=== PATIENT | male | born 1935 | race Caucasian/White ===

== ENCOUNTER 2016-12-04 07:40 | Emergency (ER) | payer OTHER ==
[~2016-12-04] VITALS: Ht 180.3 cm; Wt 86.0 kg
[~2016-12-04 07:40] MED LIST: KETO2CRE14 TOP; PRLSR20 PO; RANITAB6 PO; SIMV20TA2 PO; SOTA120T PO; WARF5TAB90 PO
[2016-12-04 08:02] LABS: BASO % 0.7 %; BASO ABS # 0.06 K/uL (0-0.2); COMPLETE YES; EOS % 10.2 %; HEMATOCRIT 41.4 % (42-52); IG% 0.1 %; LYMPH % 45.3 %; LYMPH ABS # 3.79 K/uL (1.2-3.4); MEAN CORPUSCULAR HEMOGLOBIN 32.8 pg (25-34); MEAN CORPUSCULAR HGB CONC 33.8 g/dl (32-36); MEAN PLATELET VOLUME 11.3 fL (7.4-10.4); MONO % 8.3 %; NEUT % 35.4 %; PLATELET COUNT 159 K/uL (130-400); RED BLOOD COUNT 4.27 M/uL (4.7-6.1); WHITE BLOOD COUNT 8.36 K/uL (4.8-10.8)
[2016-12-04 08:11] LABS: INR 2.2 (0.9-1.1); PARTIAL THROMBOPLASTIN RATIO 1.3; PROTHROMBIN TIME (PATIENT) 24.1 SECONDS (9.0-12.0)
[2016-12-04] MEDS ORDERED: SODIUM CHLORIDE 0.9% 1000ML 1,000 ML IV STA (08:18)
[2016-12-04] MEDS ORDERED: METOPROLOL TARTRATE 1 MG/ML VIAL IV STA ×3 (08:18→13:04)
[2016-12-04 08:19] LABS: ALT/SGPT 19 U/L (12-78); BLOOD UREA NITROGEN 19 mg/dl (7-18); BUN/CREATININE RATIO 18.8 (10-20); CALCIUM 9.1 mg/dl (8.5-10.1); CARBON DIOXIDE 29 mmol/L (21-32); CHLORIDE 105 mmol/L (98-107); GLUCOSE 106 mg/dl (70-99); MAGNESIUM 2.3 mg/dl (1.8-2.4); POTASSIUM 4.2 mmol/L (3.5-5.1); SODIUM 140 mmol/L (136-145)
[2016-12-04 08:30] LABS: ALKALINE PHOSPHATASE 50 U/L (45-117); AST/SGOT 24 U/L (15-37)
[2016-12-04] MEDS ORDERED: SOTA160T PO (09:15)
[2016-12-04] MEDS ORDERED: OMEP20CA9 PO (09:15)
[2016-12-04] MEDS ORDERED: NZRCR TOP (09:22)
[2016-12-04] MEDS ORDERED: SODIUM CHLORIDE 0.9% 500ML 500 ML IV STA (11:42)
[2016-12-04 11:51] LABS: URINE APPEARANCE CLEAR (CLEAR); URINE BILIRUBIN NEG (NEG); URINE COLOR YELLOW; URINE NITRITE NEG (NEG); URINE PH 7.5 (4.5-7.5); URINE SPECIFIC GRAVITY 1.011 (1.000-1.030); UROBILINOGEN NEG (NEG)
[2016-12-04 11:55] LABS: MANUAL MICROSCOPIC REQUIRED? NO; REVIEW REQ? NO
[2016-12-04 13:44] VITALS: O2SAT 98
[2016-12-04 15:06] VITALS: BP 94/69; PULSE 123; TEMP 36.5; O2SAT 98; Ht 180.3 cm; Wt 86.0 kg
[2016-12-04] MEDS ORDERED: LIDOCAINE 2% 20 MG/ML 5ML SYR ONE (15:15)
[2016-12-04] MEDS ORDERED: PROPOFOL IV EMULSION 10 MG/ML 20 ML VIAL IV ONE ×2 (15:15→15:19)
[2016-12-04] MEDS ORDERED: LIDOCAINE HCL 2% 2 ML VIAL (20MG/ML) ONE (15:19)
[2016-12-04 15:45] VITALS: BP 87/53; PULSE 63; O2SAT 96
[2016-12-04 15:47] VITALS: BP 92/51; PULSE 66; O2SAT 95
[2016-12-04 15:50] VITALS: BP 89/58; PULSE 56; O2SAT 95
--- NOTE | 2016-12-04 16:02 | Discharge Instructions ---
Discharge Instructions Procedure Procedure Date: Dec 04, 2016. Reason for Visit: Generalized Weakness. Discharge Discharge Date: Dec 04, 2016. Discharge Diagnosis: Atrial fibrillation Last Recorded Wt (Kilograms): 86 Anesthesia Post Anesthesia Instructions: If you have had General Anesthesia or IV Sedation: * Do not drive today. * Resume driving when surgeon permits. * Do not make important decisions or sign legal documents today. * Call surgeon for: 1. Temperature elevations greater than 101 degrees F. 2. Uncontrollable pain. 3. Excessive bleeding. 4. Persistent nausea and vomiting. 5. Medication intolerance (nausea, vomiting or rash). * For nausea and vomiting use only clear liquids such as: tea, soda, bouillon until nausea subsides, then gradually increase diet as tolerated. * If you have any concerns or questions, call your surgeon's office. If physician is unavailable and it is an emergency, call 911 or go to the nearest emergency room. Instructions Activity Recommendations: driving or machine use limit Return to School/Work: with no limitations Recommended Home Diet: low sodium Allergies: Coded Allergies: Aspirin (Unverified Adverse Reaction, Mild, STOMACH UPSET, 12/04/16) Provider Instructions ACTIVITY RECOMMENDATIONS: * May resume driving tomorrow. SPECIAL CARE: * May apply burn ointment for skin irritation. * Please contact physician for any lightheadedness, dizziness or palpitations. Follow Up Follow-up with: Riley 1 sudha Chakraborty Recommendations: Call your doctor if: * Temperature above 101 degrees * Pain not relieved by pain medicine ordered * There is increased drainage or redness from any incision * You have any unanswered questions or concerns. Your Doctors Instructions noted above were prepared by provider Pasquale Dye. Patient Signature Section: Patient Instructions Signature Page Chaz Jenkins Patient (or Guardian) Signature/Date: I have read and understand the instructions given to me by my caregivers. Caregiver/RN/Doctor Signature/Date: The above-named patient and/or guardian has received patient instructions on this date. + Original Patient Signature Page (only) stays with chart. Please make copy for patient.
--- NOTE | 2016-12-04 16:06 | EMERGENCY ROOM VISIT NOTE ---
History Report prepared by Mello: Catherine Coe Under the Supervision of: Dr. Matteo Barker M.D. First contact with patient: 07:42 Stated Complaint: GENERALIZED WEAKNESS History of Present Illness The patient is an 81 year old male who presents to the Emergency Room with complaints of a persistent irregular heartbeat that began last evening. The patient states that he has a 15 year history of atrial fibrillation, noting that he has been cardioverted in the past. He states that he is currently on Warfarin and Sotalol. The patient states that he has been feeling fatigued since this episode began. The patient states that he has not had an episode of atrial fibrillation in several years. He states that he follows with Dr. Lin, Cardiology for his atrial fibrillation. The patient denies any alcohol or caffeine consumption. Pt denies LOC, headache, fevers, chills, diaphoresis, visual changes, neck pain, chest pain, breathing difficulties, nausea, vomiting , abdominal pain, back pain, melena, hematochezia, urinary symptoms, numbness, weakness, lymphadenopathy, rash, or other complaints. Source of History: patient Onset: last evening Position: other (global) Quality: other (irregular heartbeat) Timing: other (persistent) Associated Symptoms: + fatigue Review of Systems See HPI for pertinent positives and negatives. A total of ten systems were reviewed and were otherwise negative. Past Medical & Surgical Medical Problems: (1) Atrial fibrillation (2) Cholecystectomy (3) Gastroesophageal reflux disease Family History Hypertension Kidney disease Social History Smoking Status: Former Smoker Alcohol Use: occasionally Drug Use: none Marital Status: Housing Status: lives with family Occupation Status: retired Current/Historical Medications Scheduled Ketoconazole (Ketoconazole), 1 APPLN TOP DAILY Omeprazole (Prilosec), 20 MG PO DAILY Simvastatin (Zocor), 20 MG PO HS Sotalol Hcl (Sotalol Hcl), 1 TAB PO BID Warfarin Sodium (Coumadin), 5 MG PO 5XWK Warfarin Sodium (Coumadin), 2.5 MG PO MWF Allergies Coded Allergies: Aspirin (Unverified Adverse Reaction, Mild, STOMACH UPSET, 12/04/16) Physical Exam Vital Signs Date Time Temp Pulse Resp B/P Pulse Ox O2 Delivery O2 Flow Rate FiO2 12/04/16 15:06 36.5 123 16 94/69 98 Room Air 12/04/16 15:06 36.5 123 16 94/69 96 Room Air 12/04/16 13:44 124 16 94/69 98 Room Air 12/04/16 13:13 126 132/95 12/04/16 13:03 133 12/04/16 12:54 124 15 132/95 98 Room Air 12/04/16 11:14 117 12/04/16 10:34 127 18 110/69 12/04/16 10:23 131 18 78/54 12/04/16 09:43 145 20 120/76 12/04/16 08:51 123 18 105/84 97 12/04/16 08:29 137 105/80 12/04/16 08:00 99 Room Air 12/04/16 07:55 145 12/04/16 07:52 36.5 136 18 118/91 100 Room Air Physical Exam GENERAL: Awake, alert, well-appearing, in no distress HENT: Normocephalic, atraumatic. Oropharynx unremarkable. EYES: Normal conjunctiva. Sclera non-icteric. NECK: Supple. No nuchal rigidity. FROM. No JVD. RESPIRATORY: Clear to auscultation. CARDIAC: Tachycardic rate, irregular rhythm. Extremities warm and well perfused. Pulses equal. ABDOMEN: Soft, non-distended. No tenderness to palpation. No rebound or guarding. No masses. RECTAL: Deferred. MUSCULOSKELETAL: Chest examination reveals no tenderness. The back is symmetrical on inspection without obvious abnormality. There is no CVA tenderness to palpation. No joint edema. LOWER EXTREMITIES: Calves are equal size bilaterally and non-tender. No edema. No discoloration. NEURO: Normal sensorium. No sensory or motor deficits noted. SKIN: No rash or jaundice noted. Medical Decision & Procedures Laboratory Results 12/04/16 07:30 Red Blood Count 4.27, Mean Corpuscular Volume 97.0, Mean Corpuscular Hemoglobin 32.8, Mean Corpuscular Hemoglobin Concent 33.8, Mean Platelet Volume 11.3, Neutrophils (%) (Auto) 35.4, Lymphocytes (%) (Auto) 45.3, Monocytes (%) (Auto) 8.3, Eosinophils (%) (Auto) 10.2, Basophils (%) (Auto) 0.7, Neutrophils # (Auto ) 2.96, Lymphocytes # (Auto) 3.79, Monocytes # (Auto) 0.69, Eosinophils # (Auto ) 0.85, Basophils # (Auto) 0.06 12/04/16 07:30 Test 12/04/16 07:30 12/04/16 11:10 White Blood Count 8.36 K/uL (4.8-10.8) Red Blood Count 4.27 M/uL (4.7-6.1) Hemoglobin 14.0 g/dL (14.0-18.0) Hematocrit 41.4 % (42-52) Mean Corpuscular Volume 97.0 fL (80-100) Mean Corpuscular Hemoglobin 32.8 pg (25-34) Mean Corpuscular Hemoglobin Concent 33.8 g/dl (32-36) Platelet Count 159 K/uL (130-400) Mean Platelet Volume 11.3 fL (7.4-10.4) Neutrophils (%) (Auto) 35.4 % Lymphocytes (%) (Auto) 45.3 % Monocytes (%) (Auto) 8.3 % Eosinophils (%) (Auto) 10.2 % Basophils (%) (Auto) 0.7 % Neutrophils # (Auto) 2.96 K/uL (1.4-6.5) Lymphocytes # (Auto) 3.79 K/uL (1.2-3.4) Monocytes # (Auto) 0.69 K/uL (0.11-0.59) Eosinophils # (Auto) 0.85 K/uL (0-0.5) Basophils # (Auto) 0.06 K/uL (0-0.2) RDW Standard Deviation 48.7 fL (36.4-46.3) RDW Coefficient of Variation 13.7 % (11.5-14.5) Immature Granulocyte % (Auto) 0.1 % Immature Granulocyte # (Auto) 0.01 K/uL (0.00-0.02) Prothrombin Time 24.1 SECONDS (9.0-12.0) Prothromb Time International Ratio 2.2 (0.9-1.1) Activated Partial Thromboplast Time 34.6 SECONDS (21.0-31.0) Partial Thromboplastin Ratio 1.3 Anion Gap 6.0 mmol/L (3-11) Est Creatinine Clear Calc Drug Dose 63.6 ml/min Estimated GFR () 81.4 Estimated GFR (Non- 70.3 BUN/Creatinine Ratio 18.8 (10-20) Calcium Level 9.1 mg/dl (8.5-10.1) Magnesium Level 2.3 mg/dl (1.8-2.4) Total Bilirubin 0.5 mg/dl (0.2-1) Direct Bilirubin < 0.1 mg/dl (0-0.2) Aspartate Amino Transf (AST/SGOT) 24 U/L (15-37) Alanine Aminotransferase (ALT/SGPT) 19 U/L (12-78) Alkaline Phosphatase 50 U/L (45-117) Total Protein 7.0 gm/dl (6.4-8.2) Albumin 3.8 gm/dl (3.4-5.0) Lipase 226 U/L (73-393) Thyroid Stimulating Hormone (TSH) 6.320 uIu/ml (0.300-4.500) Urine Color YELLOW Urine Appearance CLEAR (CLEAR) Urine pH 7.5 (4.5-7.5) Urine Specific [place] 1.011 (1.000-1.030) Urine Protein NEG (NEG) Urine Glucose (UA) NEG (NEG) Urine Ketones NEG (NEG) Urine Occult Blood NEG (NEG) Urine Nitrite NEG (NEG) Urine Bilirubin NEG (NEG) Urine Urobilinogen NEG (NEG) Urine Leukocyte Esterase NEG (NEG) Laboratory results reviewed by me Medications Administered Medications (Trade) Dose Ordered Sig/Gabby Route Start Time Stop Time Status Last Admin Dose Admin Metoprolol Tartrate 5 mg 5 mg NOW STAT IV 12/04/16 08:18 12/04/16 08:20 DC 12/04/16 08:29 5 MG Sodium Chloride 1,000 ml @ 125 mls/hr Q8H STAT IV 12/04/16 08:18 12/04/16 16:17 12/04/16 08:29 125 MLS/HR Sodium Chloride (Nss 500ml) 500 ml @ 999 mls/hr Q31M STAT IV 12/04/16 11:42 12/04/16 12:12 DC 12/04/16 11:42 999 MLS/HR Metoprolol Tartrate (Lopressor Iv) 2.5 mg NOW STAT IV 12/04/16 13:04 12/04/16 13:06 DC 12/04/16 13:13 2.5 MG ECG Indication: other (irregular heartbeat) Rate (beats per minute): 138 Rhythm: atrial fibrillation (with RVR) Findings: no acute ischemic change, no ectopy ED Course 804: The patient was evaluated in room B6. A complete history and physical exam was performed. 0818: Ordered Sodium Chloride 1000 ml @ 125 mls/hr IV, Lopressor IV 5 mg IV. 09: I discussed the patients case with Dr. Dye, Cardiology. He is going to look into cardioverting the patient. 0940: I reevaluated the patient and it was brought to my attention that the patient ate a cracker with his Sotalol. 1006: I rediscussed the patient's case with Dr. Dye, Cardiology. He will take the patient to be cardioverted later this afternoon. 1040: I reevaluated the patient and he had an episode of hypotension. The patient is awaiting cardiology for cardioversion. 1142: Ordered Sodium Chloride 500 ml @ 999 mls/hr IV. 1304: I reevaluated the patient and he is resting comfortably. Ordered Lopressor IV 2.5 mg IV. 1439: I reevaluated the patient and he is preparing to go over for cardioversion. Medical Decision Triage Nursing notes reviewed. The patient's presentation and history were concerning for rapid atrial fibrillation. Etiologies such as ectopy, cardiac dysrhythmia, electrolyte abnormality, thyroid dysfunction, pulmonary embolism, infection, gastrointestinal, as well as others were entertained. The patient was evaluated. He had rapid atrial fibrillation. He was asymptomatic otherwise. The patient was started on normal saline and given 5 mg of IV Lopressor. Consultation was made with cardiology for cardioversion as the patient states he has had poor success in the past medications. Unfortunately the patient ate a cracker with taking his morning sotalol and this delayed his cardioversion until after 1500 hrs. The patient did require a small fluid bolus of 500 mL secondary to some borderline low blood pressure after Lopressor. He did very well with this. The patient was given a second 2.5 mg dose was present for rate control. The patient was taken to the cardiopulmonary suite and was cardioverted. He will be followed up in the office. He will continue his current medications. The chart was completed utilizing [employer] voice recognition software. Grammatical errors, random word insertions, pronoun errors, and incomplete sentences are an occasional consequence of this system due to software limitations, ambient noise, and hardware issues. Any formal questions or concerns about the content, text, or information contained within the body of this dictation should be directly addressed to the physician for clarification. Consults Time Called: 916 Consulting Physician: Dr. Dye, Cardiology Returned Call: [phone] I discussed the patients case with Keyana Braswell. He is going to look into cardioverting the patient. Additional Consults: Time Called: 100 Consulted Physician: Dr. Dye Cardiology Returned Call: 100 Additional Comments: I rediscussed the patient's case with Keyana Braswell. He will take the patient to be cardioverted later this afternoon. Impression Primary Impression: Atrial fibrillation with rapid ventricular response Critical Care I have personally spent greater than 30 minutes of critical care time in the direct management of this patient. This includes bedside care, interpretation of diagnostic studies, and testing, discussion with consultants, patient, and other required patient management activities. This 30 minutes is in excess of all separately billable procedures. Scribe Attestation The scribe's documentation has been prepared under my direction and personally reviewed by me in its entirety. I confirm that the note above accurately reflects all work, treatment, procedures, and medical decision making performed by me. Departure Information Dispostion Home / Self-Care (discharged by cardiology) Referrals Gabriele Brown M.D. (PCP)
--- NOTE | 2016-12-04 16:29 | CARDIOVERSION ---
DATE OF OPERATION: 12/04/2016 PROCEDURE PERFORMED: Electrical cardioversion. STAFF [employer] SOFTWARE DEVELOPMENT ENGINEER: El Dye MD INDICATION: Mr. Chaz Jenkins is an 81-year-old gentleman with a longstanding history of paroxysmal atrial fibrillation, who presented with symptoms of atrial fibrillation today. He has been appropriately anticoagulated and requested cardioversion for symptom relief. PROCEDURE IN DETAIL: The patient was informed of the risks, benefits and alternatives to the intended procedure. He understood such and wished to proceed. He was taken to the cardiac catheterization suite in a fasting state and general anesthetic was administered by the anesthesiology service. Once appropriately anesthetized, patient underwent direct current cardioversion with 200 joules delivered in a biphasic fashion. This returned patient to a normal sinus rhythm. Rhythm was confirmed with an EKG. The patient was neurologically intact. Subsequent to the procedure, there were no immediate complications. IMPRESSION: Successful cardioversion from atrial fibrillation and normal sinus rhythm. I attest to the content of the Intraoperative Record and any orders documented therein. Any exceptio ns are noted below.
--- NOTE | 2016-12-04 16:29 | Anesthesiology Progress Note ---
Anesthesia Post Op Note Date & Time Dec 04, 2016 at 16:30 Vital Signs Pain Intensity: 0 Vital Signs Past 12 Hours Date Time Temp Pulse Resp B/P Pulse Ox O2 Delivery O2 Flow Rate FiO2 12/04/16 16:00 53 16 100/50 96 Room Air 12/04/16 15:55 53 16 98/49 96 Room Air 12/04/16 15:50 56 16 89/48 96 Room Air 12/04/16 15:50 56 16 89/58 95 Nasal Cannula 4 12/04/16 15:47 66 16 92/51 95 Nasal Cannula 4 12/04/16 15:45 63 16 87/53 96 Nasal Cannula 4 12/04/16 15:06 36.5 123 16 94/69 98 Room Air 12/04/16 15:06 36.5 123 16 94/69 96 Room Air 12/04/16 13:44 124 16 94/69 98 Room Air 12/04/16 13:13 126 132/95 12/04/16 13:03 133 12/04/16 12:54 124 15 132/95 98 Room Air 12/04/16 11:14 117 12/04/16 10:34 127 18 110/69 12/04/16 10:23 131 18 78/54 12/04/16 09:43 145 20 120/76 12/04/16 08:51 123 18 105/84 97 12/04/16 08:29 137 105/80 12/04/16 08:00 99 Room Air 12/04/16 07:55 145 12/04/16 07:52 36.5 136 18 118/91 100 Room Air Notes Mental Status: alert / awake / arousable, participated in evaluation Pt Amnestic to Procedure: Yes Nausea / Vomiting: adequately controlled Pain: adequately controlled Airway Patency, RR, SpO2: stable & adequate BP & HR: stable & adequate Hydration State: stable & adequate Anesthetic Complications: no major complications apparent
[2016-12-04 16:30] VITALS: BP 156/64; PULSE 63; O2SAT 96
--- NOTE | 2017-04-21 18:35 | Procedure Note ---
Procedure Note Date of Service December 04, 2016. Procedure Note Procedure performed: Electrocardioversion Staff lower school music teacher:Vick Dye Indication: Symptomatic atrial fibrillation Procedure in detail Patient was informed of the risks benefits alternatives to the intended procedure. He was brought to the cardiac catheterization holding area. A general anesthetic was administered by the Anesthesiology Service. Once appropriately anesthetized the patient underwent cardioversion using a biphasic waveform. This returned the patient to sinus rhythm. The patient was neurologically intact subsequent to the procedure. There were no immediate complications Impression: Successful cardioversion from atrial fibrillation to sinus rhythm
== END 2016-12-04 15:27 | disposition home or self-care (01) ==
LOC: EDBD 07:40 → C.EDB 07:41
DX: I48.91 Unspecified atrial fibrillation (principal); Z90.49 Acquired absence of other specified parts of digestive tract; K21.9 Gastro-esophageal reflux disease without esophagitis; Z87.891 Personal history of nicotine dependence; Z79.01 Long term (current) use of anticoagulants

== ENCOUNTER → 2017-06-16 | Outpatient (CLI) | payer OTHER ==
[~2017-06-16] MED LIST changes: -KETO2CRE14 TOP; +NZRCR TOP; +OMEP20CA9 PO; -PRLSR20 PO; -RANITAB6 PO; -SOTA120T PO; +SOTA160T PO
[2017-06-16 11:10] LABS: ALT/SGPT 17 U/L (12-78); AST/SGOT 19 U/L (15-37); BLOOD UREA NITROGEN 23 mg/dl (7-18); BUN/CREATININE RATIO 20.6 (10-20); CARBON DIOXIDE 29 mmol/L (21-32); CHLORIDE 108 mmol/L (98-107); GLUCOSE 91 mg/dl (70-99); POTASSIUM 4.2 mmol/L (3.5-5.1); SODIUM 141 mmol/L (136-145)
[2017-06-16 11:15] LABS: CALCIUM 9.3 mg/dl (8.5-10.1)
[2017-06-16 11:21] LABS: CHOLESTEROL 162 mg/dl (0-200); CHOLESTEROL/HDL RATIO 2.4; HDL CHOLESTEROL 67 mg/dl; LDL CHOLESTEROL CALCULATED 78 mg/dl; TRIGLYCERIDES 86 mg/dl (0-150); VERY LOW DENSITY LIPOPROT CALC 17 mg/dl
== END | disposition home or self-care (01) ==
LOC: C.LABBC 08:18
PROVIDERS: ATTEND Internal Medicine
DX: E03.9 Hypothyroidism, unspecified (principal); E78.5 Hyperlipidemia, unspecified

== ENCOUNTER → 2018-01-01 | Outpatient (CLI) | payer OTHER ==
[2018-01-01 11:16] LABS: HEMATOCRIT 39.2 % (42-52); HEMOGLOBIN 13.2 g/dL (14.0-18.0); MEAN CELL VOLUME 98.2 fL (80-100); MEAN CORPUSCULAR HEMOGLOBIN 33.1 pg (25-34); MEAN CORPUSCULAR HGB CONC 33.7 g/dl (32-36); MEAN PLATELET VOLUME 11.4 fL (7.4-10.4); PLATELET COUNT 143 K/uL (130-400); RED CELL DISTRIBUTION WIDTH CV 13.9 % (11.5-14.5); WHITE BLOOD COUNT 7.29 K/uL (4.8-10.8)
[2018-01-01 11:25] LABS: ALT/SGPT 21 U/L (12-78); AST/SGOT 20 U/L (15-37); BLOOD UREA NITROGEN 27 mg/dl (7-18); CALCIUM 8.9 mg/dl (8.5-10.1); CARBON DIOXIDE 30 mmol/L (21-32); CHOLESTEROL 160 mg/dl (0-200); CREATININE 1.01 mg/dl (0.60-1.40); GLUCOSE 95 mg/dl (70-99); POTASSIUM 4.2 mmol/L (3.5-5.1); SODIUM 139 mmol/L (136-145)
[2018-01-01 11:36] LABS: LDL CHOLESTEROL CALCULATED 87 mg/dl
== END | disposition home or self-care (01) ==
LOC: C.LABBC 08:13
PROVIDERS: ATTEND Internal Medicine
DX: E78.5 Hyperlipidemia, unspecified (principal); E03.9 Hypothyroidism, unspecified; I48.0 Paroxysmal atrial fibrillation

== ENCOUNTER 2024-12-31 00:12 | Inpatient (IN) ==
--- NOTE | 2024-12-31 00:26 | Emergency Department Note ---
History of Present Illness General Chief complaint: Fall Stated complaint: FALL, LAC TO FOREHEAD Time Seen by Provider: 12/31/24 00:13 History of Present Illness Maximum Pain Intensity: 4 This 89-year-old male on Coumadin for A-fib presents ER for syncope and fall. Patient states he was walking and then collapsed. He does not quite recall the events. He did press his help alert button that he wears. Patient has an abrasion to the left side of the face. He has chronic hip pain. Patient states he hit his head. He denies neck pain, chest pain, dyspnea, abdominal pain, numbness, tingling or any other medical complaints. Home Medications Medication Instructions Recorded Confirmed Type mecobalamin (vitamin B12) 1,000 1,000 mcg PO DAILY 09/08/22 12/31/24 History mcg chewable tablet sotalol 160 mg tablet 160 mg PO BID #180 tabs 08/18/24 12/31/24 Rx simvastatin 20 mg tablet 20 mg PO HS #90 tabs 11/15/24 12/31/24 Rx acetaminophen 500 mg tablet 1,000 mg PO Q8H PRN back pain 12/27/24 12/31/24 History (Tylenol Extra Strength) lidocaine 5 % topical patch 1 patch topical DAILY PRN 12/27/24 12/31/24 History (Lidoderm) PAIN-LOWER BACK warfarin 5 mg tablet See Rx Instructions PO UD 12/27/24 12/31/24 History Allergies Allergy/AdvReac Type Severity Reaction Status Date / Time aspirin AdvReac Intermediate UPSET Verified 12/31/24 01:04 STOMACH clopidogrel [From Plavix] AdvReac Intermediate Abdominal Verified 12/31/24 01:04 Pain Past Med/Surg History Problem List (Updated 12/31/24 @ 03:41 by Marina Suárez PA-C) Constipation Urinary retention Facial laceration (Acute) Head injury (Acute) Syncope (Acute) Hernia, hiatal (Acute) Back pain (Acute) Compression fracture of thoracic spine, non-traumatic (Acute) Anemia Idiopathic polyneuropathy Gait disorder Depression Hypothyroidism "BORDERLINE" PCP monitoring; patient "deferred meds" at this time; TSH 5.080H, Free T4 0.80 (WNL) per 05/28/19 labs BPH (benign prostatic hyperplasia) Inguinal hernia of left side without obstruction or gangrene 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 Paroxysmal atrial fibrillation (Chronic) Dyslipidemia (Chronic) Glaucoma (Acute) Chest pain Encounter for monitoring anti-arrhythmic therapy Vitamin B12 deficiency Oropharyngeal dysphagia Silent aspiration Medical History Hx of thrombosis of lower extremity Headache History of kidney stones SOB (shortness of breath) on exertion Paroxysmal atrial fibrillation GERD (gastroesophageal reflux disease) Dyslipidemia Surgical History History of tooth extraction History of inguinal hernia repair History of endoscopy History of cardioversion History of toe surgery History of colonoscopy History of cholecystectomy Family History Uncle Myocardial infarction Brother Myocardial infarction Mother Diabetes Father History of pneumonia Denies family history of Ovarian cancer Prostate cancer Breast cancer Colorectal cancer Social History Smoking Status: Former smoker Tobacco Type: Cigarettes Age Started Using Tobacco: 18; Age Quit Using Tobacco: 35; packs per day: 2; Second Hand Exposure: No; Do You Dip or Chew Tobacco: No; Tobacco Cessation Education Requested by Patient: No Hx Alcohol Use: No Hx Substance Use: No Preferred Language: Yi Communication Ability: Effective Visual Impairment: No Limitations Hearing Ability: Normal Cost Manager Required: No Beliefs That Will Affect Care: None marital status: / Current Living Situation: Alone Current Living Situation Comment: Home current occupational status: retired 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 Other Information That Helps Us Care for You: No Feels Safe at Home: Yes Safety Concerns: Feels Safe At This Time Childhood Exposure to Second-Hand Smoke: Yes Dental Care, Regularly: Yes Physical Activity Frequency: Daily Physical Activity Frequency Comment: walking Seatbelt Use: always Sunscreen Use: No Assistive Devices: None Review of Systems A total of 10 systems reviewed and were otherwise negative Physical Exam Vital Signs Vital Signs - 24 hr 12/31/24 00:16 12/31/24 00:24 12/31/24 00:44 Temperature 37 C Temperature Source Oral Pulse Rate 68 70 Pulse Rate [Apical] 84 Pulse Rhythm [Apical] Pulse Strength [Apical] Respiratory Rate 22 22 17 Respiratory Effort / Characteristics Non-Labored Spontaneous Non-Labored Spontaneous Respiratory Depth Normal Normal Respiratory Pattern Regular Regular Blood Pressure 171/89 H Blood Pressure [Right Arm] 155/95 H Blood Pressure Mean 116 Blood Pressure Mean [Right Arm] 115 Blood Pressure Position [Right Arm] Pulse Oximetry 99 100 100 Oxygen Delivery Method Room Air Room Air Room Air Sepsis Recent Fever Within 48 Hours No Sepsis New/Unexplained Change in Mental Status No Sepsis Action Taken by Nursing No Action Required 12/31/24 00:44 12/31/24 01:31 12/31/24 02:00 Temperature Temperature Source Pulse Rate 71 Pulse Rate [Apical] 61 60 Pulse Rhythm [Apical] Regular Pulse Strength [Apical] Normal Respiratory Rate 18 18 Respiratory Effort / Characteristics Non-Labored Spontaneous Non-Labored Spontaneous Respiratory Depth Normal Normal Respiratory Pattern Regular Regular Blood Pressure Blood Pressure [Right Arm] 166/79 H 146/93 H Blood Pressure Mean Blood Pressure Mean [Right Arm] 108 110 Blood Pressure Position [Right Arm] Semi-fowlers Pulse Oximetry 97 98 Oxygen Delivery Method Room Air Room Air Sepsis Recent Fever Within 48 Hours Sepsis New/Unexplained Change in Mental Status Sepsis Action Taken by Nursing 12/31/24 03:00 Temperature Temperature Source Pulse Rate Pulse Rate [Apical] 64 Pulse Rhythm [Apical] Regular Pulse Strength [Apical] Normal Respiratory Rate 18 Respiratory Effort / Characteristics Non-Labored Spontaneous Respiratory Depth Normal Respiratory Pattern Regular Blood Pressure Blood Pressure [Right Arm] 157/76 H Blood Pressure Mean Blood Pressure Mean [Right Arm] 103 Blood Pressure Position [Right Arm] Semi-fowlers Pulse Oximetry 99 Oxygen Delivery Method Room Air Sepsis Recent Fever Within 48 Hours Sepsis New/Unexplained Change in Mental Status Sepsis Action Taken by Nursing VITALS: Vitals are noted on the nurse's note and reviewed by myself. Vital signs stable. GENERAL: Elderly male, in no acute distress, nondiaphoretic, well-developed well-nourished. SKIN: Abrasion to left side of face, the rest of the skin was without rashes, erythema, edema, or bruising. There is no tenting of the skin. Capillary reflex less than 2 seconds. HEAD: Normocephalic atraumatic. EARS: External auditory canals clear EYES: Pupils equal round and reactive to light and accommodation. Conjunctivae without injection, sclerae without icterus. Extraocular movements intact. NOSE: Patent, no discharge. MOUTH: Mucous membranes moist. Pharynx without erythema or exudate. Uvula midline. Airway patent. Tongue does not deviate. NECK: Supple without nuchal rigidity. No lymphadenopathy. No thyromegaly. Cervical spine is nontender. No JVD. HEART: Regular rate and rhythm LUNGS: Clear to auscultation bilaterally without wheezes, rales or rhonchi. No retractions or accessory muscle use. ABDOMEN: Positive bowel sounds x 4. Normal tympanic percussion. Soft, nontender, without masses or organomegaly. Costa sign negative. No guarding or rebound tenderness. No CVA tenderness MUSCULOSKELETAL: No muscle atrophy, erythema, or edema noted. NEURO: Patient was alert and oriented to person place and time. Normal sensation to light and sharp touch. No focal neurological deficits. Course Administered Medications Lactated Ringer's (Lr) 1,000 mls @ 100 mls/hr IV .Q10H EVA Stop: 12/31/24 13:44 Last Admin: 12/31/24 04:31 Dose: 100 mls/hr Documented By: CHRISTIAN Discontinued Medications Diphtheria/Pertussis/Tetanus Vacc (Diphther/Tetan/Pertus Vaccine (Tdap, Adol/Adult) 0.5ml) 0.5 ml IM .ONCE ONE Stop: 12/31/24 01:42 Last Admin: 12/31/24 01:59 Dose: 0.5 ml Documented By: NYA Acetaminophen (Ofirmev) 1,000 mg in 100 mls @ 400 mls/hr IV NOW STA Stop: 12/31/24 01:21 Last Infusion: 12/31/24 01:59 Dose: Infused Documented By: Admin: 12/31/24 01:09 Dose: 400 mls/hr Documented By: MED Ioversol (Optiray 320 100ml) 94 ml IV ONCE ONE Stop: 12/31/24 00:34 Last Admin: 12/31/24 00:33 Dose: 94 ml Documented By: VASU Polyethylene Glycol (Polyethylene (Miralax) 17 Gm Pack) 17 gm PO NOW STA Stop: 12/31/24 03:19 Last Admin: 12/31/24 04:31 Dose: 17 gm Documented By: CHRISTIAN Medical Decision Making Medical Records Attestation: I reviewed the patient's medical records. Home Medications Current Medication List: was personally reviewed by me Laboratory Data Attestation: I reviewed the patient's lab results. 12/31/24 04:46 12/31/24 04:46 Lab Results 12/31/24 12/31/24 12/31/24 Range/Units 00:21 00:23 01:37 WBC 7.73 (4.8-10.8) K/ul RBC 3.42 L (4.70-6.10) M/uL Hgb 11.6 L (14.0-18.0) g/dl POC Hgb 11.9 L (14.0-18.0) g/dl Hct 34.4 L (42.0-52.0) % POC Hct 35 L (42-52) % MCV 100.6 H (80.0-100.0) fL MCH 33.9 (25.0-34.0) pg MCHC 33.7 (32.0-36.0) g/dL RDW Std Deviation 49.1 H (36.4-46.3) fL RDW Coeff of Edilberto 13.2 (11.5-14.5) % Plt Count 171 (130-400) K/uL MPV 10.4 (9.4-12.4) fL Immature Gran % (Auto) 0.3 % Neut % (Auto) 61.4 % Lymph % (Auto) 26.3 % [place] % (Auto) 9.1 % Eos % (Auto) 2.5 % Baso % (Auto) 0.4 % Neut # (Auto) 4.76 (1.40-6.50) K/uL Lymph # (Auto) 2.03 (1.20-3.40) K/uL [place] # (Auto) 0.70 H (0.11-0.59) K/uL Eos # (Auto) 0.19 (0.00-0.50) K/uL Baso # (Auto) 0.03 (0.00-0.20) K/uL Immature Gran # (Auto) 0.02 (0.01-0.20) K/uL PT 25.1 H (9.0-12.0) Seconds INR 2.5 H (0.9-1.1) APTT 29 (21-31) Seconds PTT Ratio 1.1 POC Sodium 140 (135-144) mmol/L Sodium 138 (136-145) mmol/L POC Potassium 4.1 (3.3-5.0) mmol/L Potassium 4.1 (3.5-5.1) mmol/L POC Chloride 102 (101-112) mmol/L Chloride 105 (98-107) mmol/L Carbon Dioxide 28 (21-32) mmol/L POC Total CO2 23 L (24-31) mmol/L Anion Gap 5 (3-11) POC Anion Gap 20.0 (16-25) mmol/L POC BUN 32 H (7-18) mg/dl BUN 37 H (6-23) mg/dl Creatinine 1.05 (0.6-1.4) mg/dl POC Creatinine 1.1 (0.6-1.3) mg/dl Est Cr Clr Drug Dosing 49.2 ml/min eGFR 67.85 BUN/Creatinine Ratio 35.2 H (10-20) Glucose 162 H (70-99(Fasting)) mg/dl POC Glucose (other) 155 H (70-99) mg/dl Calcium 9.4 (8.6-10.3) mg/dl POC Ioniz Calcium Romelia 1.28 (1.12-1.32) mmol/l Magnesium 2.0 (1.7-2.4) mg/dl Total Bilirubin 0.5 (0.2-1.0) mg/dl AST 20 (13-39) U/L ALT 15 (7-52) U/L Alkaline Phosphatase 47 (34-104) U/L Total Creatine Kinase 60 (30-223) U/L Troponin I High Sens 10.1 (0-20) pg/ml Total Protein 7.1 (6.0-8.3) gm/dl Albumin 3.9 (3.4-5.0) gm/dl Globulin 3.2 (2.5-4.0) gm/dl Albumin/Globulin Ratio 1.2 (0.9-2) TSH 6.698 H (0.300-4.500) uIu/ml Free T4 0.79 (0.61-1.60) ng/dl Urine Color Urine Appearance (Clear) Urine pH (4.5-7.5) Ur Specific Beverly (1.000-1.030) Urine Protein (Negative) Urine Glucose (UA) (Negative) Urine Ketones (Negative) Urine Blood (Negative) Urine Nitrite (Negative) Urine Bilirubin (Negative) Urine Urobilinogen (Negative) Ur Leukocyte Esterase (Negative) Stl C. cayetanensis PCR Not Detected (NotDetected) Stool Rotavirus A PCR Not Detected (NotDetected) Stl Adenov F 40/41 PCR Not Detected (NotDetected) Stool Astrovirus (PCR) Not Detected (NotDetected) Stool Campylobacter PCR Not Detected (NotDetected) Stl C. diff Tox B Gene TNP Stool Cryptosporidium PCR Not Detected (NotDetected) Stl E.coli Shiga Tox PCR Not Detected (NotDetected) Stl Enterotoxigenic E PCR Not Detected (NotDetected) Stool EPEC (PCR) Not Detected (NotDetected) Stool EAEC (PCR) Not Detected (NotDetected) Stl E. histolytica PCR Not Detected (NotDetected) Stool Giardia Lamblia PCR Not Detected (NotDetected) Stool Salmonella PCR Not Detected (NotDetected) Stool Sapovirus (PCR) Not Detected (NotDetected) Stl P. shigelloides PCR Not Detected (NotDetected) Stl Shigella/EIEC PCR Not Detected (NotDetected) St Y.enterocolitica PCR Not Detected (NotDetected) Stool Vibrio (PCR) Not Detected (NotDetected) Stl Vibrio cholerae PCR Not Detected (NotDetected) Stl Norovirus GI/GII PCR Not Detected (NotDetected) 12/31/24 Range/Units 02:56 WBC (4.8-10.8) K/ul RBC (4.70-6.10) M/uL Hgb (14.0-18.0) g/dl POC Hgb (14.0-18.0) g/dl Hct (42.0-52.0) % POC Hct (42-52) % MCV (80.0-100.0) fL MCH (25.0-34.0) pg MCHC (32.0-36.0) g/dL RDW Std Deviation (36.4-46.3) fL RDW Coeff of Edilberto (11.5-14.5) % Plt Count (130-400) K/uL MPV (9.4-12.4) fL Immature Gran % (Auto) % Neut % (Auto) % Lymph % (Auto) % [place] % (Auto) % Eos % (Auto) % Baso % (Auto) % Neut # (Auto) (1.40-6.50) K/uL Lymph # (Auto) (1.20-3.40) K/uL [place] # (Auto) (0.11-0.59) K/uL Eos # (Auto) (0.00-0.50) K/uL Baso # (Auto) (0.00-0.20) K/uL Immature Gran # (Auto) (0.01-0.20) K/uL PT (9.0-12.0) Seconds INR (0.9-1.1) APTT (21-31) Seconds PTT Ratio POC Sodium (135-144) mmol/L Sodium (136-145) mmol/L POC Potassium (3.3-5.0) mmol/L Potassium (3.5-5.1) mmol/L POC Chloride (101-112) mmol/L Chloride (98-107) mmol/L Carbon Dioxide (21-32) mmol/L POC Total CO2 (24-31) mmol/L Anion Gap (3-11) POC Anion Gap (16-25) mmol/L POC BUN (7-18) mg/dl BUN (6-23) mg/dl Creatinine (0.6-1.4) mg/dl POC Creatinine (0.6-1.3) mg/dl Est Cr Clr Drug Dosing ml/min eGFR BUN/Creatinine Ratio (10-20) Glucose (70-99(Fasting)) mg/dl POC Glucose (other) (70-99) mg/dl Calcium (8.6-10.3) mg/dl POC Ioniz Calcium Romelia (1.12-1.32) mmol/l Magnesium (1.7-2.4) mg/dl Total Bilirubin (0.2-1.0) mg/dl AST (13-39) U/L ALT (7-52) U/L Alkaline Phosphatase (34-104) U/L Total Creatine Kinase (30-223) U/L Troponin I High Sens (0-20) pg/ml Total Protein (6.0-8.3) gm/dl Albumin (3.4-5.0) gm/dl Globulin (2.5-4.0) gm/dl Albumin/Globulin Ratio (0.9-2) TSH (0.300-4.500) uIu/ml Free T4 (0.61-1.60) ng/dl Urine Color Yellow Urine Appearance Clear (Clear) Urine pH 6.5 (4.5-7.5) Ur Specific Beverly 1.021 (1.000-1.030) Urine Protein Negative (Negative) Urine Glucose (UA) Negative (Negative) Urine Ketones Trace H (Negative) Urine Blood Negative (Negative) Urine Nitrite Negative (Negative) Urine Bilirubin Negative (Negative) Urine Urobilinogen Negative (Negative) Ur Leukocyte Esterase Negative (Negative) Stl C. cayetanensis PCR (NotDetected) Stool Rotavirus A PCR (NotDetected) Stl Adenov F 40/41 PCR (NotDetected) Stool Astrovirus (PCR) (NotDetected) Stool Campylobacter PCR (NotDetected) Stl C. diff Tox B Gene Stool Cryptosporidium PCR (NotDetected) Stl E.coli Shiga Tox PCR (NotDetected) Stl Enterotoxigenic E PCR (NotDetected) Stool EPEC (PCR) (NotDetected) Stool EAEC (PCR) (NotDetected) Stl E. histolytica PCR (NotDetected) Stool Giardia Lamblia PCR (NotDetected) Stool Salmonella PCR (NotDetected) Stool Sapovirus (PCR) (NotDetected) Stl P. shigelloides PCR (NotDetected) Stl Shigella/EIEC PCR (NotDetected) St Y.enterocolitica PCR (NotDetected) Stool Vibrio (PCR) (NotDetected) Stl Vibrio cholerae PCR (NotDetected) Stl Norovirus GI/GII PCR (NotDetected) Imaging Data Attestation: I personally reviewed and interpreted this imaging study as follows: Radiologist's Impression: Face CT 12/31/24 00:19 EXAM: CT facial bones wo con CLINICAL HISTORY: fall, left facial injury on Coumadin. TECHNIQUE: CT scan of the maxillofacial region was performed without the administration of intravenous contrast. Contiguous axial images were obtained from the skull base to the mandible. Coronal and sagittal reformatted images were also reviewed. One of the following dose reduction techniques was utilized for this exam. Automated exposure control, adjustment of the mA and/or kV according to patient size, and use of iterative reconstruction. COMPARISON: No previous studies are available for comparison. FINDINGS: Bones: Maxilla: The maxillary bones are intact without evidence of acute fracture, lytic or sclerotic lesions. No signs of maxillary sinus wall fractures. Mandible: The mandibular bone is intact with normal cortices and trabecular patterns. There is no evidence of fracture, osteomyelitis, or neoplastic lesion. Zygomatic Bones: The zygomatic arches are intact bilaterally without evidence of fracture or deformity. Nasal Bones: The nasal bones are intact with no signs of fracture or displacement. Orbital Quan: The orbital quan are intact with no evidence of fracture or bony erosion. Orbits: The orbits are normal in size and shape. The globes are symmetric and well-positioned with no evidence of proptosis. The extraocular muscles appear normal in size and symmetry. The optic nerves are normal in caliber and course with no signs of compression or lesion. No retro-orbital masses or abnormal fluid collections are observed. Nasal Cavity and Paranasal Sinuses: Nasal Cavity: The nasal cavity is clear with no evidence of masses, polyps. Minimal left-sided nasal septal deviation with a small bony spur. Frontal Sinuses: The frontal sinuses are well-pneumatized and free of fluid or soft tissue masses. Ethmoid Sinuses: The ethmoid air cells are clear with no mucosal thickening or fluid levels. Maxillary Sinuses: Minimal left maxillary sinusitis; otherwise, the maxillary sinuses are well-pneumatized with no fluid levels, mucosal thickening, or masses. Sphenoid Sinuses: The sphenoid sinuses are clear with no abnormalities noted. Temporomandibular Joints (TMJ): The TMJs are symmetric and normal in appearance. The mandibular condyles are well-positioned within the glenoid fossae. There are no signs of dislocation, subluxation, or significant degenerative changes. The articular eminences are normal in contour. Soft Tissues: The soft tissues of the face, including the cheeks, lips, and submandibular regions, appear unremarkable. There are no masses, cysts, or abnormal fluid collections. The parotid and submandibular glands are normal in size and appearance without focal lesions. Dentition: The teeth are well-aligned with no evidence of fractures or significant dental pathology. There are no signs of periapical abscesses or cystic lesions. The alveolar ridges are intact without evidence of osteolysis. Additional Findings: Elongated styloid processes bilaterally. No signs of osteomyelitis or other infectious processes. IMPRESSION: 1. No evidence of acute fracture, dislocation, or significant soft tissue abnormality. 2. Minimal left maxillary sinusitis. 3. Relatively elongated styloid processes bilaterally, could represent Hill's syndrome; clinical correlation would be recommended. RECOMMENDATIONS: No further imaging is required at this time. Clinical correlation is recommended for any persistent symptoms. Electronically signed by Roque Torrez 12-31-2024 01:[address] 12/31/24 00:20 EXAM: CT cervical spine wo con CLINICAL HISTORY: High on Coumadin. TECHNIQUE: CT scan of the cervical spine was performed without the administration of intravenous contrast. Contiguous axial images were obtained from the skull base to the upper thoracic spine. Coronal and sagittal reformatted images were also reviewed. One of the following dose reduction techniques was utilized for this exam. Automated exposure control, adjustment of the mA and/or kV according to patient size, and use of iterative reconstruction. CTDI: 23.97 DLP: 1205.72 COMPARISON: Prior CT cervical 10/18/2019 FINDINGS: Vertebrae: Intact cortex of the scanned bony vertebra with no fracture lines. Grade I anterolisthesis of C7 over T1, degenerative in nature. Spondylotic changes with anterior and posterior osteophytic lipping and subcortical irregularities, and sclerosis. Multi-level facet joints arthropathy, with narrowed spaces, cortical irregularities, and sclerosis. The vertebral bodies are normal in height and alignment. No evidence of acute fracture or dislocation. No signs of lytic or sclerotic lesions. Normal configuration of the posterior elements. Osteopenic texture. Intervertebral Discs: Multi-level narrowed disc spaces. C4-C5, C5-C6, and C6-C7 disc osteophyte complex bulge indenting the subarachnoid space and encroaching upon both neural exit foramina. Prevertebral Soft Tissues: The prevertebral soft tissues are normal in thickness without evidence of mass or abnormal fluid collection. 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 IMPRESSION: 1. No evidence of acute fracture or dislocation. 2. Spondylotic changes. 3. Multi-level facet joints arthropathy. 4. Multi-level disc osteophyte complex posterior bulge suggests further MRI assessment. 5. Osteopenic texture. 6. No time interval with significant radiological changes. Electronically signed by Roque Torrez 12-31-2024 01:[address] 12/31/24 00:20 EXAM: CT head/brain wo con CLINICAL HISTORY: syncope on coumadin TECHNIQUE: Multiple axial images are obtained from the skull base to the vertex without contrast. CT scan was performed according to ALARA (as low as reasonable achievable). COMPARISON: 14:50:06 JEWEL SORTER. FINDINGS: There is cerebral atrophy. No evidence of space occupying lesion, hemorrhage, edema, mass effect, midline shift, extra axial collection, or hydrocephalus is noted. Basal cisterns are symmetric and normal in size and configuration. There are scattered periventricular hypodensities as can be seen with chronic microvascular ischemic changes. The gallego-white matter differentiation is preserved. Visualized paranasal sinuses and mastoid air cells are well aerated. Orbital contents are within normal limits. Bony structures are intact. IMPRESSION: 1. No evidence of acute intracranial abnormality is demonstrated. 2. Chronic microvascular ischemic changes. 3. Cerebral atrophy. No other new interval abnormality since prior study. Electronically signed by Won Chou 12-31-2024 01:21 AM Abdomen/Pelvis CT 12/31/24 00:26 EXAM: CT abd pelvis IV con only CLINICAL HISTORY: fall on coumadin, syncope, pain TECHNIQUE: Multiple contiguous axial images were obtained from the level of diaphragm to the pubis symphysis. This study was acquired after the IV administration of iodinated contrast material, given the patients indications for the examination. If IV contrast material had not been administered, the likelihood of detecting abnormalities relevant to the patients condition would have been substantially decreased. Coronal and sagittal reformatted images were generated and reviewed to improve anatomic localization and optimize lesion detection. CT scan was performed according to ALARA (as low as reasonable achievable). COMPARISON: .. 25 December 2024 FINDINGS: The visualized lung bases show small subsegemntal collapse consolidation in medial segment of right middle lobe Hiatal hernia noted ABDOMEN/PELVIS: The liver is normal in size and attenuation. No focal liver lesions are seen. There is intra and extrahepatic biliary ductal dilatation with dilated CBD 14 mm with distal tapering . Hepatic vasculature is patent. The gallbladder is postop. The spleen, pancreas, and adrenal glands are unremarkable. The kidneys are normal in size and attenuation. There is no hydronephrosis or perinephric fat stranding. No renal calculi or renal masses are identified. The ureters are normal in caliber and no ureteral calculi are seen. The bladder is normal in contour and grossly overdistended No evidence of focal or diffuse bowel wall thickening or evidence of bowel obstruction is seen. The appendix is visualized in the right lower quadrant and appears within normal limits. No adenopathy or fluid collections are seen. The aorta is normal in caliber. No aggressive appearing osseous lesions are identified. Degenerative changes in spine with diffuse osteopenia with partial collapse of T12 and L1 vertebral body Rectum is overdistended with faecal matter IMPRESSION: Rectum is overdistended with faecal matter Urinary bladder is grossly overdistended: advise ultrasound for prostate gland and bladder evaluation. There is intra and extrahepatic biliary ductal dilatation with dilated CBD 14 mm with distal tapering: could be post cholecystectomy changes. If clinical suspicion of biliary obstruction, advised MRCP. Hiatal hernia Degenerative changes in spine with diffuse osteopenia with partial collapse of T12 and L1 vertebral body Electronically signed by Won Chou 12-31-2024 02:[address] 12/31/24 00:26 EXAM: CT chest diagnostic w con CLINICAL HISTORY: fall on coumadin TECHNIQUE: Contiguous axial images were obtained from the neck base through the upper abdomen following intravenous administration of contrast material. If IV contrast material had not been administered, the likelihood of detecting abnormalities relevant to the patient's condition would have been substantially decreased. In addition, sagittal and coronal reconstructions were performed. CT scan was performed according to ALARA (as low as reasonable achievable). 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 Diffuse interlobular interlobular septal thickening with adjacent ground-glass haziness are noted involving both lungs- possibility of sequelae of prior infection/changes of interstitial lung disease. The lungs are clear, with no focal areas of consolidation. No pulmonary nodules are seen. The central airways are patent. There are no pleural effusions. No pneumothorax is seen. No axillary, hilar, or mediastinal adenopathy is identified. The visualized thyroid is unremarkable. The heart, aorta, and pulmonary arteries are of normal size and configuration. No pericardial effusion is identified. Imaged portions of the upper abdomen are unremarkable. No aggressive appearing osseous lesions are identified. 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 Schmorl's node / lower endplate irregularity is noted involving L1 vertebral body IMPRESSION: 1. 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 -stable. 2. Diffuse interlobular interlobular septal thickening with adjacent ground-glass haziness are noted involving both lungs- possibility of sequelae of prior infection/changes of interstitial lung disease.-stable. 3. 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 4. Schmorl's node / lower endplate irregularity is noted involving L1 vertebral body 5. No other abnormality seen. Electronically signed by Won Chou 12-31-2024 02:18 AM MDM Narrative Prior records/ancillary studies reviewed. Triage Nursing notes reviewed. Additional history obtained from nursing and EMS. The patient's history was concerning for syncope. Differential diagnosis: Etiologies such as vasovagal event, infection, hypoglycemia, electrolyte abnormalities, cardiac sources, intracerebral event, toxicologic, neurologic, as well as others were entertained. Physical examination: As above ER treatment provided: IV hydration with normal saline On reassessment the patient felt better. Wound care by nursing Tetanus is given Tylenol was ordered Patient's bladder was drained. An order was placed for continuous cardiac monitoring. The monitor shows a rate of 60-100 with a sinus rhythm per my interpretation. Diagnostics interpretation by me: ECG: ordered for syncope ECG: Normal sinus, poor baseline, no acute ST-T wave changes, rate of 70. Impression normal sinus rhythm poor baseline independently interpreted by myself The labs Independently Interpreted by myself revealed stable anemia, therapeutic INR Negative troponin, hyperglycemia without DKA Imaging studies: Imaging was reviewed and read by radiology Consultation: A consultation was placed with the hospitalist. The case was discussed and diagnostics were reviewed. The patient was evaluated in the ER for further treatment. This appears to be consistent with syncope with fall with head injury. Negative imaging. Stable labs. Patient did pass out. I do feel he should be admitted for further evaluation and workup. Medicine was consulted and the case was discussed. He will be evaluated for admission. By the evaluation outlined above emergent etiologies such as hypoglycemia, electrolyte abnormalities, intracerebral event, toxicologic, as well as others were deemed relatively unlikely. The pt informed about the findings as listed above. All questions were answered and pleased with the treatment. The chart was completed utilizing [employer] voice recognition software. Grammatical errors, random word insertions, pronoun errors, and incomplete sentences are an occassional consequence of this system due to software limitations, ambient noise, and hardware issues. Any formal questions or concerns about the content, text, or information contained within the body of this dictation should be directly addressed to the physician title i assistant for clarification. Attending Attestation: I Tommie Ho MD I have reviewed the advanced practitioner's documentation and agree with the plan of care. I accept the responsibility for the associated risk of managing the patient. I performed a substantive portion of the visit including involvement in all aspects of medical decision making. Impression & Plan Syncope, Head injury, Facial laceration Discharge Plan Visit Data Chief Complaint: Fall Stated Complaint: FALL, LAC TO FOREHEAD ED Provider: Tommie Ho ED Midlevel Provider: Zaida Garner Discharge Problem: Syncope, Head injury, Facial laceration Patient Disposition: Admitted As Inpatient Condition: Fair Discharge Instructions Interventions: ED Discharge Assessment Last Done: 12/31/24 04:08 Discharge Problem: Syncope Qualifiers: Syncope type: unspecified Qualified Code(s): R55 - Syncope and collapse
[2024-12-31] MEDS: OPTIRAY 320 100ml IV ONE (00:33)
[2024-12-31 00:35] LABS: iSTAT Creatinine 1.1 mg/dl (0.6-1.3); iSTAT Hemoglobin 11.9 g/dl (14.0-18.0); iSTAT Ionized Calcium 1.28 mmol/l (1.12-1.32); iSTAT Potassium 4.1 mmol/L (3.3-5.0)
[2024-12-31 00:38] LABS: Basophils # (auto) 0.03 K/uL (0.00-0.20); Basophils % (auto) 0.4 %; Eosinophils # (auto) 0.19 K/uL (0.00-0.50); Eosinophils % (auto) 2.5 %; Hematocrit (blood only) 34.4 % (42.0-52.0); Hemoglobin 11.6 g/dl (14.0-18.0); Immature Granulocytes # (auto) 0.02 K/uL (0.01-0.20); Immature Granulocytes % (auto) 0.3 %; Lymphocytes # (auto) 2.03 K/uL (1.20-3.40); Lymphocytes % (auto) 26.3 %; Mean Corpuscular Hemoglobin 33.9 pg (25.0-34.0); Mean Corpuscular Hgb Conc 33.7 g/dL (32.0-36.0); Mean Corpuscular Volume 100.6 fL (80.0-100.0); Mean Platelet Volume 10.4 fL (9.4-12.4); Monocytes % (auto) 9.1 %; Neutrophils # (auto) 4.76 K/uL (1.40-6.50); Neutrophils % (auto) 61.4 %; Platelet Count 171 K/uL (130-400); RDW Coefficient of Variation 13.2 % (11.5-14.5); RDW Standard Deviation 49.1 fL (36.4-46.3); Red Blood Count 3.42 M/uL (4.70-6.10); White Blood Count 7.73 K/ul (4.8-10.8)
[2024-12-31 00:56] LABS: Albumin Globulin Ratio 1.2 (0.9-2); Albumin Level 3.9 gm/dl (3.4-5.0); BUN Creatinine Ratio 35.2 (10-20); Bilirubin,Total 0.5 mg/dl (0.2-1.0); Calcium 9.4 mg/dl (8.6-10.3); Creatinine Clr Calc Pharmacy 49.2 ml/min; Globulin 3.2 gm/dl (2.5-4.0); Potassium 4.1 mmol/L (3.5-5.1); Total Protein 7.1 gm/dl (6.0-8.3)
[2024-12-31 01:03] LABS: Troponin I High Sensitivity 10.1 pg/ml (0-20)
[2024-12-31] MEDS: ACETAMINOPHEN 1,000 MG/100 ML VIAL IV STA (01:09)
[2024-12-31 01:10] LABS: INR 2.5 (0.9-1.1); Partial Thromboplastin Ratio 1.1; Partial Thromboplastin Time 29 Seconds (21-31); Prothrombin Time 25.1 Seconds (9.0-12.0)
[2024-12-31 01:12] LABS: Thyroid Stimulating Hormone 6.698 uIu/ml (0.300-4.500)
--- NOTE | 2024-12-31 01:22 | CT Scan Report ---
EXAM: CT head/brain wo con CLINICAL HISTORY: syncope on coumadin TECHNIQUE: Multiple axial images are obtained from the skull base to the vertex without contrast. CT scan was performed according to ALARA (as low as reasonable achievable). 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 FINDINGS: There is cerebral atrophy. No evidence of space occupying lesion, hemorrhage, edema, mass effect, midline shift, extra axial collection, or hydrocephalus is noted. Basal cisterns are symmetric and normal in size and configuration. There are scattered periventricular hypodensities as can be seen with chronic microvascular ischemic changes. The gallego-white matter differentiation is preserved. Visualized paranasal sinuses and mastoid air cells are well aerated. Orbital contents are within normal limits. Bony structures are intact. IMPRESSION: 1. No evidence of acute intracranial abnormality is demonstrated. 2. Chronic microvascular ischemic changes. 3. Cerebral atrophy. No other new interval abnormality since prior study. Electronically signed by Won Chou 12-31-2024 01:21 AM
--- NOTE | 2024-12-31 01:32 | CT Scan Report ---
EXAM: CT facial bones wo con CLINICAL HISTORY: fall, left facial injury on Coumadin. TECHNIQUE: CT scan of the maxillofacial region was performed without the administration of intravenous contrast. Contiguous axial images were obtained from the skull base to the mandible. Coronal and sagittal reformatted images were also reviewed. One of the following dose reduction techniques was utilized for this exam. Automated exposure control, adjustment of the mA and/or kV according to patient size, and use of iterative reconstruction. COMPARISON: No previous studies are available for comparison. FINDINGS: Bones: Maxilla: The maxillary bones are intact without evidence of acute fracture, lytic or sclerotic lesions. No signs of maxillary sinus wall fractures. Mandible: The mandibular bone is intact with normal cortices and trabecular patterns. There is no evidence of fracture, osteomyelitis, or neoplastic lesion. Zygomatic Bones: The zygomatic arches are intact bilaterally without evidence of fracture or deformity. Nasal Bones: The nasal bones are intact with no signs of fracture or displacement. Orbital Quan: The orbital quan are intact with no evidence of fracture or bony erosion. Orbits: The orbits are normal in size and shape. The globes are symmetric and well-positioned with no evidence of proptosis. The extraocular muscles appear normal in size and symmetry. The optic nerves are normal in caliber and course with no signs of compression or lesion. No retro-orbital masses or abnormal fluid collections are observed. Nasal Cavity and Paranasal Sinuses: Nasal Cavity: The nasal cavity is clear with no evidence of masses, polyps. Minimal left-sided nasal septal deviation with a small bony spur. Frontal Sinuses: The frontal sinuses are well-pneumatized and free of fluid or soft tissue masses. Ethmoid Sinuses: The ethmoid air cells are clear with no mucosal thickening or fluid levels. Maxillary Sinuses: Minimal left maxillary sinusitis; otherwise, the maxillary sinuses are well-pneumatized with no fluid levels, mucosal thickening, or masses. Sphenoid Sinuses: The sphenoid sinuses are clear with no abnormalities noted. Temporomandibular Joints (TMJ): The TMJs are symmetric and normal in appearance. The mandibular condyles are well-positioned within the glenoid fossae. There are no signs of dislocation, subluxation, or significant degenerative changes. The articular eminences are normal in contour. Soft Tissues: The soft tissues of the face, including the cheeks, lips, and submandibular regions, appear unremarkable. There are no masses, cysts, or abnormal fluid collections. The parotid and submandibular glands are normal in size and appearance without focal lesions. Dentition: The teeth are well-aligned with no evidence of fractures or significant dental pathology. There are no signs of periapical abscesses or cystic lesions. The alveolar ridges are intact without evidence of osteolysis. Additional Findings: Elongated styloid processes bilaterally. No signs of osteomyelitis or other infectious processes. IMPRESSION: 1. No evidence of acute fracture, dislocation, or significant soft tissue abnormality. 2. Minimal left maxillary sinusitis. 3. 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 RECOMMENDATIONS: No further imaging is required at this time. Clinical correlation is recommended for any persistent symptoms. Electronically signed by Roque Torrez 12-31-2024 01:31 AM
[2024-12-31 01:47] LABS: T4 Free Thyroxine 0.79 ng/dl (0.61-1.60)
--- NOTE | 2024-12-31 01:53 | CT Scan Report ---
EXAM: CT cervical spine wo con CLINICAL HISTORY: High on Coumadin. TECHNIQUE: CT scan of the cervical spine was performed without the administration of intravenous contrast. Contiguous axial images were obtained from the skull base to the upper thoracic spine. Coronal and sagittal reformatted images were also reviewed. One of the following dose reduction techniques was utilized for this exam. Automated exposure control, adjustment of the mA and/or kV according to patient size, and use of iterative reconstruction. CTDI: 23.97 DLP: 1205.72 COMPARISON: Prior CT cervical 10/18/2019 FINDINGS: Vertebrae: Intact cortex of the scanned bony vertebra with no fracture lines. Grade I anterolisthesis of C7 over T1, degenerative in nature. Spondylotic changes with anterior and posterior osteophytic lipping and subcortical irregularities, and sclerosis. Multi-level facet joints arthropathy, with narrowed spaces, cortical irregularities, and sclerosis. The vertebral bodies are normal in height and alignment. No evidence of acute fracture or dislocation. No signs of lytic or sclerotic lesions. Normal configuration of the posterior elements. Osteopenic texture. Intervertebral Discs: Multi-level narrowed disc spaces. C4-C5, C5-C6, and C6-C7 disc osteophyte complex bulge indenting the subarachnoid space and encroaching upon both neural exit foramina. Prevertebral Soft Tissues: The prevertebral soft tissues are normal in thickness without evidence of mass or abnormal fluid collection. 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 IMPRESSION: 1. No evidence of acute fracture or dislocation. 2. Spondylotic changes. 3. Multi-level facet joints arthropathy. 4. Multi-level disc osteophyte complex posterior bulge suggests further MRI assessment. 5. Osteopenic texture. 6. No time interval with significant radiological changes. Electronically signed by Roque Torrez 12-31-2024 01:52 AM
[2024-12-31] MEDS: DIPHTHER/TETAN/PERTUS Vaccine (Tdap, Adol/Adult) 0.5mL IM ONE (01:59)
--- NOTE | 2024-12-31 02:17 | CT Scan Report ---
EXAM: CT abd pelvis IV con only CLINICAL HISTORY: fall on coumadin, syncope, pain TECHNIQUE: Multiple contiguous axial images were obtained from the level of diaphragm to the pubis symphysis. This study was acquired after the IV administration of iodinated contrast material, given the patients indications for the examination. If IV contrast material had not been administered, the likelihood of detecting abnormalities relevant to the patients condition would have been substantially decreased. Coronal and sagittal reformatted images were generated and reviewed to improve anatomic localization and optimize lesion detection. CT scan was performed according to ALARA (as low as reasonable achievable). COMPARISON: .. 25 December 2024 FINDINGS: The visualized lung bases show small subsegemntal collapse consolidation in medial segment of right middle lobe Hiatal hernia noted ABDOMEN/PELVIS: The liver is normal in size and attenuation. No focal liver lesions are seen. There is intra and extrahepatic biliary ductal dilatation with dilated CBD 14 mm with distal tapering . Hepatic vasculature is patent. The gallbladder is postop. The spleen, pancreas, and adrenal glands are unremarkable. The kidneys are normal in size and attenuation. There is no hydronephrosis or perinephric fat stranding. No renal calculi or renal masses are identified. The ureters are normal in caliber and no ureteral calculi are seen. The bladder is normal in contour and grossly overdistended No evidence of focal or diffuse bowel wall thickening or evidence of bowel obstruction is seen. The appendix is visualized in the right lower quadrant and appears within normal limits. No adenopathy or fluid collections are seen. The aorta is normal in caliber. No aggressive appearing osseous lesions are identified. Degenerative changes in spine with diffuse osteopenia with partial collapse of T12 and L1 vertebral body Rectum is overdistended with faecal matter IMPRESSION: Rectum is overdistended with faecal matter Urinary bladder is grossly overdistended: advise ultrasound for prostate gland and bladder evaluation. There is intra and extrahepatic biliary ductal dilatation with dilated CBD 14 mm with distal tapering: could be post cholecystectomy changes. If clinical suspicion of biliary obstruction, advised MRCP. Hiatal hernia Degenerative changes in spine with diffuse osteopenia with partial collapse of T12 and L1 vertebral body Electronically signed by Won Chou 12-31-2024 02:17 AM
--- NOTE | 2024-12-31 02:18 | CT Scan Report ---
EXAM: CT chest diagnostic w con CLINICAL HISTORY: fall on coumadin TECHNIQUE: Contiguous axial images were obtained from the neck base through the upper abdomen following intravenous administration of contrast material. If IV contrast material had not been administered, the likelihood of detecting abnormalities relevant to the patient's condition would have been substantially decreased. In addition, sagittal and coronal reconstructions were performed. CT scan was performed according to ALARA (as low as reasonable achievable). 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 Diffuse interlobular interlobular septal thickening with adjacent ground-glass haziness are noted involving both lungs- possibility of sequelae of prior infection/changes of interstitial lung disease. The lungs are clear, with no focal areas of consolidation. No pulmonary nodules are seen. The central airways are patent. There are no pleural effusions. No pneumothorax is seen. No axillary, hilar, or mediastinal adenopathy is identified. The visualized thyroid is unremarkable. The heart, aorta, and pulmonary arteries are of normal size and configuration. No pericardial effusion is identified. Imaged portions of the upper abdomen are unremarkable. No aggressive appearing osseous lesions are identified. 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 Schmorl's node / lower endplate irregularity is noted involving L1 vertebral body IMPRESSION: 1. 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 -stable. 2. Diffuse interlobular interlobular septal thickening with adjacent ground-glass haziness are noted involving both lungs- possibility of sequelae of prior infection/changes of interstitial lung disease.-stable. 3. 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 4. Schmorl's node / lower endplate irregularity is noted involving L1 vertebral body 5. No other abnormality seen. Electronically signed by Won Chou 12-31-2024 02:18 AM
--- NOTE | 2024-12-31 03:04 | History & Physical Report ---
Date of Service December 31, 2024 Assessment & Plan (1) Syncope: (2) Facial laceration: (3) Urinary retention: (4) Constipation: Plan Patient is an 89-year-old male with past medical history of paroxysmal A-fib on warfarin, hypothyroidism, BPH, B12 deficiency, hiatal hernia with silent aspiration. Patient presented via EMS after assisted back did syncopal episode and head strike. Patient was walking from his dining room to kitchen and woke up on the floor, he clicked his alert pendant to summon EMS. Workup in ED essentially negative, patient is being admitted for syncopal workup. #Syncope Workup essentially negative, glucose 162, electrolytes stable, TSH WNL given age, troponin negative, EKG showed NSR, diagnostic imaging negative for acute changes. - echocardiogram ordered - patient does appear mildly dehydrated with elevated BUN/CR - fluids overnight with LR at 100 mL/hour - orthostatics in AM - monitor on telemetry - neurochecks every 4 hours; low threshold for repeat head CT if neurologic changes given warfarin use - Daily wound care to left facial abrasion - fall precautions - PT/OT consulted - Hold warfarin x 24 hrs - trend INR #urinary retention AP CT showed urine bladder grossly over distended. Nursing reported approximately 1200 mL drained with straight cath. UA negative. Possibly 2/2 fecal retention below. - Straight cath in ED - Bladder scan as needed - strict I's &O's #constipation - AP CT showed rectum over distended with fecal matter. Patient with frequent soft,small bowel movements in ED at time of admission. Stool culture negative. - MiraLAX daily scheduled + Colace BID abner - If MiraLAX fails to relieve, consider enema #anemia Hgb 11.6 at time of admission, baseline. Known macrocytic anemia. - Continue B12 supplement - Trend CBC to monitor for bleeding with recent fall #hiatal hernia - diagnostic imaging revealed rolling hiatal hernia. Known history of with silent aspiration. - Aspiration precautions #Paroxysmal A-fib - in sinus rhythm at time of admission. - Holding warfarin with above - Continue sotalol VTE ppx: SCDs, hold Warfarin x 24 hrs Dispo: med/tele In regards to discharge planning, patient lives at home alone. Admission and Anticipated Discharge Date Admission Date: 12/31/24 History of Present Illness Chief Complaint: fall Primary Care Provider: Gabriele Brown MD Patient is an 89-year-old male with past medical history of paroxysmal A-fib on warfarin, hypothyroidism, BPH, B12 deficiency, hiatal hernia with silent aspiration. Patient presented via EMS after assisted back did syncopal episode and head strike. Patient was walking from his dining room to kitchen and woke up on the floor, he clicked his alert pendant to summon EMS. Workup in ED essentially negative, patient is being admitted for syncopal workup. Patient seen at bedside. He is alert and oriented however mildly confused. He stated he can remember some things from the day but not others, is not sure what he had for lunch. He feels like he did eat and drink enough today, does not feel dehydrated. He believes he passed out because he was walking from dining room to the kitchen and then woke up on the floor. He did strike his head and has an abrasion. He clicked his alert pendant to summon EMS. Patient denies any headaches, dizziness, lightheadedness, vision changes. At bedside he stated he emergently had to have a bowel movement, nursing placed patient on bedpan. patient stated he was somewhat confused today and when he got up from his episode he realized all the lights in the house were on which is abnormal for him. He only has the lights on in the rooms that he is then. He stated he sometimes gets confused at home and tries to make lists of what to do. Patient lives at home alone however reports he has a daughter that checks in on him frequently. He denies any other significant ROS, no chest pain, lightheadedness, shortness of breath, abdominal pain, nausea. He denies any chest pain or shortness of breath prior to the episode. He got his evening medications other than sotalol. He wishes to be DNR/DNI. Reported the patient has been having frequent minimal bowel movements all evening in the ER. Suspected to be causing urinary retention. Will start with MiraLAX at this time and advance to enema if if no relief. Allergies Allergy/AdvReac Type Severity Reaction Status Date / Time aspirin AdvReac Intermediate UPSET Verified 12/31/24 01:04 STOMACH clopidogrel [From Plavix] AdvReac Intermediate Abdominal Verified 12/31/24 01:04 Pain Home Medications Medication Instructions Recorded Confirmed Type mecobalamin (vitamin B12) 1,000 1,000 mcg PO DAILY 09/08/22 12/31/24 History mcg chewable tablet sotalol 160 mg tablet 160 mg PO BID #180 tabs 08/18/24 12/31/24 Rx simvastatin 20 mg tablet 20 mg PO HS #90 tabs 11/15/24 12/31/24 Rx acetaminophen 500 mg tablet 1,000 mg PO Q8H PRN back pain 12/27/24 12/31/24 History (Tylenol Extra Strength) lidocaine 5 % topical patch 1 patch topical DAILY PRN 12/27/24 12/31/24 History (Lidoderm) PAIN-LOWER BACK warfarin 5 mg tablet See Rx Instructions PO UD 12/27/24 12/31/24 History Past Med/Surg History Problem List (Updated 12/31/24 @ 03:41 by Marina Suárez PA-C) Constipation Urinary retention Facial laceration (Acute) Head injury (Acute) Syncope (Acute) Hernia, hiatal (Acute) Back pain (Acute) Compression fracture of thoracic spine, non-traumatic (Acute) Anemia Idiopathic polyneuropathy Gait disorder Depression Hypothyroidism "BORDERLINE" PCP monitoring; patient "deferred meds" at this time; TSH 5.080H, Free T4 0.80 (WNL) per 05/28/19 labs BPH (benign prostatic hyperplasia) Inguinal hernia of left side without obstruction or gangrene halfway (current) use of anticoagulants Paroxysmal atrial fibrillation (Chronic) Dyslipidemia (Chronic) Glaucoma (Acute) Chest pain Encounter for monitoring anti-arrhythmic therapy Vitamin B12 deficiency Oropharyngeal dysphagia Silent aspiration Medical History Hx of thrombosis of lower extremity Headache History of kidney stones SOB (shortness of breath) on exertion Paroxysmal atrial fibrillation GERD (gastroesophageal reflux disease) Dyslipidemia Surgical History History of tooth extraction History of inguinal hernia repair History of endoscopy History of cardioversion History of toe surgery History of colonoscopy History of cholecystectomy Family History Uncle Myocardial infarction Brother Myocardial infarction Mother Diabetes Father History of pneumonia Denies family history of Ovarian cancer Prostate cancer Breast cancer Colorectal cancer Social History Smoking Status: Former smoker Tobacco Type: Cigarettes Age Started Using Tobacco: 18; Age Quit Using Tobacco: 35; packs per day: 2; Second Hand Exposure: No; Do You Dip or Chew Tobacco: No; Hx Alcohol Use: No Hx Substance Use: No Preferred Language: Citizen Of [place] Communication Ability: Effective Visual Impairment: No Limitations Hearing Ability: Normal Canvas Shrinker Required: No Beliefs That Will Affect Care: None marital status: / Current Living Situation: Alone Current Living Situation Comment: Home current occupational status: retired 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 HEENT- EOMI, mucous membranes dry. Hearing grossly intact. Heart-normal S1 and S2. No murmurs, rubs or gallops. Lungs-clear bilaterally, no respiratory distress, no accessory muscle use. Abdomen-normal bowel sounds and soft. No ascites noted. Non-tender. Extremities- no clubbing, cyanosis, or edema. Results & Data Results & Data Vital Signs (Past 12 Hours) Vital Signs Temp Pulse Pulse Resp BP BP Pulse Ox 12/31/24 02:00 60 18 146/93 H 98 12/31/24 01:31 61 18 166/79 H 97 12/31/24 00:44 71 12/31/24 00:44 84 17 155/95 H 100 12/31/24 00:24 70 22 100 12/31/24 00:16 37 C 68 22 171/89 H 99 O2 Del Method 12/31/24 02:00 Room Air 12/31/24 01:31 Room Air 12/31/24 00:44 12/31/24 00:44 Room Air 12/31/24 00:24 Room Air 12/31/24 00:16 Room Air Laboratory Results Reviewed CBC, CMP, troponin, magnesium, TSH Diagnostic Findings reviewed chest CT, AP CT, head CT, cervical spine CT, face CT Medications Administered EDTylenol 1G IV, tetanus vaccine ECG Additional Comments: NSR, rate 70 QTc 479 Code Status & VTE Plan VTE Prophylaxis Plan VTE Prophylaxis will be ordered: Yes PG Care Time/CCT Total # of Minutes Spent Total Time Spent with Patient: Total time spent is greater than 50% in coordination of care (as documented) at patient's floor/unit and/or counseling patient: Coding Level of Care Code 73146 INT INP/OBS CARE 3/75MIN Diagnoses Syncope R55 Syncope type: unspecified Facial laceration S01.81XA Urinary retention R33.9 Constipation K59.00 (1) Syncope Syncope type: unspecified Qualified Code(s): R55 - Syncope and collapse
[2024-12-31 03:17] LABS: Adenovirus F 40/41 PCR Not Detected (NotDetected); Astrovirus PCR Not Detected (NotDetected); Campylobacter PCR Not Detected (NotDetected); Cryptosporidium PCR Not Detected (NotDetected); Cyclospora cayetanensis PCR Not Detected (NotDetected); Entamoeba histolytica PCR Not Detected (NotDetected); Enteroaggregative E.coli(EAEC) Not Detected (NotDetected); Enteropathogenic E.coli (EPEC) Not Detected (NotDetected); Enterotoxigenic E.coli (ETEC) Not Detected (NotDetected); Giardia lamblia PCR Not Detected (NotDetected); Norovirus GI/GII PCR Not Detected (NotDetected); Plesiomonas shigelloides PCR Not Detected (NotDetected); Rotavirus A PCR Not Detected (NotDetected); Salmonella PCR Not Detected (NotDetected); Sapovirus PCR Not Detected (NotDetected); Shiga-like Toxin E.coli (STEC) Not Detected (NotDetected); Shigella/Enteroinvasive E.coli Not Detected (NotDetected); Vibrio cholerae PCR Not Detected (NotDetected); Vibrio species PCR Not Detected (NotDetected); Yersinia enterocolitica PCR Not Detected (NotDetected)
[2024-12-31 03:22] LABS: Appearance Urine Clear (Clear); Bilirubin Urine Negative (Negative); Blood Urine Negative (Negative); Color Urine Yellow; Glucose Urine UA Negative (Negative); Ketones Urine Trace (Negative); Leukocyte Esterase Urine Negative (Negative); Nitrite Urine Negative (Negative); Protein Urine Negative (Negative); Specific Gravity Urine 1.021 (1.000-1.030); Urobilinogen Urine Negative (Negative); pH Urine 6.5 (4.5-7.5)
[2024-12-31] MEDS ORDERED: ONDANSETRON INJ 2 MG/ML 2 ML VIAL IV PRN (04:08)
[2024-12-31] MEDS: POLYETHYLENE (MIRALAX) 17 GM PACK PO STA (04:31)
[2024-12-31] MEDS: LACTATED RINGER'S 1,000 ML IV SCH (04:31)
[2024-12-31 04:57] LABS: Basophils # (auto) 0.01 K/uL (0.00-0.20); Basophils % (auto) 0.1 %; Eosinophils # (auto) 0.07 K/uL (0.00-0.50); Eosinophils % (auto) 0.8 %; Hematocrit (blood only) 34.1 % (42.0-52.0); Hemoglobin 11.7 g/dl (14.0-18.0); Immature Granulocytes # (auto) 0.02 K/uL (0.01-0.20); Immature Granulocytes % (auto) 0.2 %; Lymphocytes # (auto) 1.28 K/uL (1.20-3.40); Lymphocytes % (auto) 15.4 %; Mean Corpuscular Hemoglobin 34.3 pg (25.0-34.0); Mean Corpuscular Hgb Conc 34.3 g/dL (32.0-36.0); Mean Platelet Volume 10.4 fL (9.4-12.4); Monocytes # (auto) 0.55 K/uL (0.11-0.59); Monocytes % (auto) 6.6 %; Neutrophils # (auto) 6.39 K/uL (1.40-6.50); Neutrophils % (auto) 76.9 %; Platelet Count 158 K/uL (130-400); Red Blood Count 3.41 M/uL (4.70-6.10); White Blood Count 8.32 K/ul (4.8-10.8)
[2024-12-31 05:14] LABS: BUN Creatinine Ratio 37.4 (10-20); Creatinine Clr Calc Pharmacy 56.8 ml/min; Magnesium 1.7 mg/dl (1.7-2.4); Potassium 4.6 mmol/L (3.5-5.1)
--- NOTE | 2024-12-31 09:01 | XRay Report ---
Clinical history: Constipation. Ileus 2 views of the abdomen were obtained Findings: There is no definite sign of bowel obstruction. There is mild constipation. Gas is seen within mildly prominent loops of small and large bowel. No renal or ureteral calculi are seen. There is excreted contrast within the urinary bladder. Surgical clips are seen suggestive of prior cholecystectomy. Vascular calcifications are present. There is lumbar scoliosis and degenerative disc disease Impression: Constipation and possible mild ileus ACT 112: Positive. There are findings on this exam that require communication between the performing entity and the patient following Patient Test Result Information Act ([place] ACT 112) guidelines. Electronically signed by Dick Dumont 12-31-2024 09:01 AM
[2024-12-31] MEDS: CYANOCOBALAMIN (B-12) 500 MCG TABLET PO SCH (09:22)
[2024-12-31] MEDS: SOTALOL HCL 80 MG TAB PO SCH (09:23)
[2024-12-31] MEDS: POLYETHYLENE (MIRALAX) 17 GM PACK PO SCH ×2 (09:23→14:00)
[2024-12-31] MEDS: DOCUSATE SODIUM 100 MG CAP PO SCH (09:23)
--- NOTE | 2024-12-31 13:18 | Hospitalist Progress Note ---
Date of Service December 31, 2024 Assessment & Plan (1) Syncope: (2) Facial laceration: (3) Urinary retention: (4) Constipation: Plan Patient is an 89-year-old male with past medical history of paroxysmal A-fib on warfarin, hypothyroidism, BPH, B12 deficiency, hiatal hernia with silent aspiration. Patient presented via EMS after assisted back did syncopal episode and head strike. Patient was walking from his dining room to kitchen and woke up on the floor, he clicked his alert pendant to summon EMS. Workup in ED essentially negative, patient is being admitted for syncopal workup. #Syncope Suspect volume contraction/prerenal syncope. Does have some lower extremity edema but otherwise remains volume contracted. Patient is very weak and easily fatigued on exam. PT/OT pending. No evidence of hyper/hypoglycemia, significant lecture abnormality, or ischemia. EKG normal sinus rhythm without acute ischemic change. No signs of bradycardia/heart block TTE pending Patient is volume contracted on admission - echocardiogram pending - Neurochecks every 4 hours; low threshold for repeat head CT if neurologic changes given warfarin use. Currently extremity strength is intact and does not have any acute focal neurologic deficits on rounding reassessment - Daily wound care to left facial abrasion - fall precautions - PT/OT consulted #urinary retention AP CT showed urine bladder grossly over distended. Suspected due to fecal retention - Straight cath in ED. Bladder scan as needed, if PVR greater than [address] temporary Reich - strict I's &O's, management as constipation as below No saddle anesthesia, hip flexion and ankle dorsi/plantarflexion are intact although easily fatigued. No low back pain at time of assessment. Urine is noninfected appearing #constipation, ileus CTA/P with some intra/extrahepatic biliary ductal dilation and CBD of 40 mm with distal tapering possibly related to postcholecystectomy changes. There is no transaminitis/obstructive LFTs. - KUB without improvement and consistent with ileus Patient has had some amounts of liquid diarrhea. On CT review does have a significant colonic stool burden and constipationWill continue with MiraLAX 3 times daily, Colace, and clears until bowels are progressing. Enema x 1 ordered for rectal burden. Suspect the liquid diarrhea in small amounts is overflow, stool softeners/laxatives are still currently indicated. Do not use loperamide at this time Stool studies normal #anemia Hgb 11.6 at time of admission, baseline. Known macrocytic anemia. - Continue B12 supplement -Trend CBC, hemoglobin remained stable #hiatal hernia - diagnostic imaging revealed rolling hiatal hernia. Known history of with silent aspiration. - Aspiration precautions #Paroxysmal A-fib - in sinus rhythm at time of admission. -INR 2.5 Continue sotalol No active bleeding, no new neurologic deficits Warfarin resumed goal 23. If any signs of active bleeding then hold warfarin and reverse Disposition planning: Patient appears weak, frail and very easily fatigued. Not appear safe for home at this time and remains volume contracted. Additional fluids are ordered and PT/OT is pending VTE ppx: Anticoagulated Dispo: med/tele Admission and Anticipated Discharge Date Admission Date: December 31, 2024 Soren Ware is seen at the bedside. He reports that he is tired and was a little bit scared because he felt like he had to get up to use the bathroom but felt too weak and was worried about this. He is oriented to place, year and name. He reports he lives in a 1 floor home alone, does have stairs but "I am not allowed to use them, I do not use them ". He reports he does feel generally weak although nowhere in particular. Denies fever chills or sweats. Reports he is having difficulty peeing which is new. He is having small liquid bowel movements, reports he sits on the toilet and feels like he has to go but cannot. Physical Exam Physical Exam: General: Oriented to name, place, and year. Cooperative. No acute distress HEENT: Left eye abrasion present without active bleeding. EOM intact. Vision and hearing grossly intact. Pupils equal and reactive to light Pulm: Diminished but grossly clear. Symmetrical chest rise. No increased work of breathing. No respiratory distress. Cardiac: RRR, -mrg. Radial pulses intact and symmetrical. Abdominal: Nontender, soft, slightly softly distended. Bowel sounds are diminished Extremities: Left lower extremity with mild chronic edema and chronic stasis hyperpigmentation changes. No tenderness. Ankle dorsiflexion/plantarflexion, hip flexion 5/5 bilaterally but fatigues extremely easily. Marketing Engineer strength elbow flexion 5/5 bilaterally but again fatigues extremely easily. Sensation of soft touch is intact in a proximal sliding/saddle without deficit or asymmetry. No pain on lumbar palpation Results & Data Results & Data Vital Signs (Past 12 Hours) Vital Signs Temp Pulse Pulse Resp BP BP Pulse Ox 12/31/24 12:33 69 17 96 12/31/24 12:30 129/65 12/31/24 12:21 70 19 97 12/31/24 12:12 73 19 97 12/31/24 12:01 137/70 12/31/24 10:10 76 18 139/84 98 12/31/24 09:24 72 138/69 98 12/31/24 07:17 69 12/31/24 07:00 70 147/70 H 96 12/31/24 06:00 36.5 C 70 16 145/94 H 95 12/31/24 04:52 36.6 C 68 18 99 12/31/24 04:37 72 12/31/24 04:30 65 16 168/89 H 98 12/31/24 04:29 12/31/24 04:00 36.6 C 66 16 149/87 H 99 12/31/24 03:00 64 18 157/76 H 99 12/31/24 02:00 60 18 146/93 H 98 12/31/24 01:31 61 18 166/79 H 97 Pulse Ox O2 Del Method O2 Del Method 12/31/24 12:33 12/31/24 12:30 12/31/24 12:21 12/31/24 12:12 12/31/24 12:01 12/31/24 10:10 Room Air 12/31/24 09:24 Room Air 12/31/24 07:17 12/31/24 07:00 Room Air 12/31/24 06:00 Room Air 12/31/24 04:52 Room Air 12/31/24 04:37 12/31/24 04:30 Room Air 12/31/24 04:29 98 Room Air 12/31/24 04:00 Room Air 12/31/24 03:00 Room Air 12/31/24 02:00 Room Air 12/31/24 01:31 Room Air PG Care Time/CCT Total # of Minutes Spent Total Time Spent with Patient: Total time spent is greater than 50% in coordination of care (as documented) at patient's floor/unit and/or counseling patient: Coding Level of Care Code 65066 SUB INP/OBS CARE 50MIN Diagnoses Syncope R55 Syncope type: unspecified Facial laceration S01.81XA Urinary retention R33.9 Constipation K59.00 (1) Syncope Syncope type: unspecified Qualified Code(s): R55 - Syncope and collapse
--- NOTE | 2024-12-31 13:54 | XCELERA ---
[id number] [id number]
[2024-12-31] MEDS ORDERED: SOD PHOSPHATE/SOD BIPHOSPHATE ENEMA 132 ML BTL PR PRN (13:58)
[2024-12-31] MEDS: TAMSULOSIN HCL 0.4 MG CAP PO SCH (14:00)
--- NOTE | 2024-12-31 16:35 | Magnetic Resonance Report ---
Clinical History: Recent fall Technique: Sagittal and axial T1 and T2-weighted magnetic resonance images were obtained of the cervical spine without gadolinium contrast. Comparison is made to the CT of the cervical spine dated 12/31/2024 Findings: The cervical vertebrae are in normal alignment with no listhesis seen. No acute fracture is identified. There is an unchanged mild old T1 compression fracture with loss of up to 20% the vertebral body height anterosuperiorly. No focal osseous lesion is noted. The overall bone marrow signal intensity of the vertebrae is unremarkable. There is no definite sign of infection. There is no sign of acute ligamentous injury. The spinal cord is of normal signal intensity with no focal lesion seen. The cerebellar tonsils are normally situated. At C2-C3, no disc herniation is present. There is no spinal stenosis or nerve root compression At C3-C4, no disc herniation is present. There is no spinal stenosis or nerve root compression At C4-C5, there is a disc bulge without spinal stenosis. There is right neural foramen narrowing that may affect the right C5 root At C5-C6, there is a disc bulge without spinal cord or neural foramen compromise At C6-C7, there is a mild disc bulge. There is no spinal stenosis or nerve root compression At C7-T1, no disc herniation is present. There is no spinal stenosis or nerve root compression Impression: 1. No sign of acute fracture or ligamentous injury 2. Mild old T1 compression fracture 3. Cervical disc bulges without spinal stenosis 4. Right C4-5 neural foramen narrowing that may affect the right C5 nerve root ACT 112: Positive. There are findings on this exam that require communication between the performing entity and the patient following Patient Test Result Information Act ([place] ACT 112) guidelines. Electronically signed by Dick Dumont 12-31-2024 4:35 PM
[2024-12-31] MEDS: SIMVASTATIN 20 MG TAB PO SCH (20:59)
[2025-01-01 07:10] LABS: BUN Creatinine Ratio 32.2 (10-20); Calcium 8.3 mg/dl (8.6-10.3); Creatinine Clr Calc Pharmacy 59.4 ml/min; Potassium 3.9 mmol/L (3.5-5.1)
[2025-01-01 07:13] LABS: INR 2.7 (0.9-1.1); Prothrombin Time 27.2 Seconds (9.0-12.0)
[2025-01-01 07:15] LABS: Hematocrit (blood only) 30.6 % (42.0-52.0); Hemoglobin 10.5 g/dl (14.0-18.0); Mean Corpuscular Hemoglobin 34.2 pg (25.0-34.0); Mean Corpuscular Hgb Conc 34.3 g/dL (32.0-36.0); Mean Corpuscular Volume 99.7 fL (80.0-100.0); Mean Platelet Volume 10.6 fL (9.4-12.4); Platelet Count 139 K/uL (130-400); RDW Coefficient of Variation 13.3 % (11.5-14.5); RDW Standard Deviation 48.5 fL (36.4-46.3); Red Blood Count 3.07 M/uL (4.70-6.10)
[2025-01-01 07:40] LABS: Basophils # (auto) 0.03 K/uL (0.00-0.20); Basophils % (auto) 0.3 %; Dohle Bodies 1+; Eosinophils # (auto) 0.02 K/uL (0.00-0.50); Eosinophils % (auto) 0.2 %; Immature Granulocytes # (auto) 0.08 K/uL (0.01-0.20); Immature Granulocytes % (auto) 0.7 %; Lymphocytes # (auto) 2.33 K/uL (1.20-3.40); Lymphocytes % (auto) 19.9 %; Monocytes # (auto) 0.99 K/uL (0.11-0.59); Monocytes % (auto) 8.5 %; Neutrophils # (auto) 8.25 K/uL (1.40-6.50); Neutrophils % (auto) 70.4 %
[2025-01-01] MEDS: LACTATED RINGER'S 1,000 ML IV SCH (08:14)
--- NOTE | 2025-01-01 08:14 | Hospitalist Progress Note ---
Date of Service January 01, 2025 Assessment & Plan (1) Syncope: (2) Facial laceration: (3) Urinary retention: (4) Constipation: Plan Patient is an 89-year-old male with past medical history of paroxysmal A-fib on warfarin, hypothyroidism, BPH, B12 deficiency, hiatal hernia with silent aspiration. Patient presented via EMS after assisted back did syncopal episode and head strike. Patient was walking from his dining room to kitchen and woke up on the floor, he clicked his alert pendant to summon EMS. Workup in ED essentially negative, patient is being admitted for syncopal workup. SIRS,? Pneumonia versus gastric translocation Patient with elevated procalcitonin, elevated leukocytosis and clinically poor appearance. Denies localizing symptoms other than diarrhea. Stool studies are pending Started on Zosyn Additional fluid boluses given. Lactate is normal. Treated for relative AI as noted UA was not infected appearing Sputum culture ordered. MRSA nare pending. If positive switch Zosyn to cefepime/Vanco/Flagyl CTA/P with IV contrast with bladder distention, no other acute abnormalities and no report of hematoma/retroperitoneal bleed. No evidence of diverticulitis/appendicitis. Post-fabricio biliary dilation was seen however transaminitis and bilirubin were not elevated #Syncope, volume contraction On admission he was with volume contraction/prerenal. Weak and very fatigued Subsequently with elevated procalcitonin and L appearance. Treated for possible pneumonia as below No evidence of hyper/hypoglycemia, significant electrolyte abnormality, or ischemia. EKG normal sinus rhythm without acute ischemic change. No signs of bradycardia/heart block Echo: EF 65 to 70%, no regional wall motion abnormalities. Normal RVSP. Moderate concentric LVH - Neurochecks every 4 hours; low threshold for repeat head CT if neurologic changes given warfarin use. Currently extremity strength is intact and does not have any acute focal neurologic deficits on rounding reassessment - Daily wound care to left facial abrasion - fall precautions - PT/OT consulted Blood pressure markedly improved following addition of hydrocortisone. Suspect large contribution of symptoms from relative AI. Will continue steroids and should have slow taper with follow-up stim test as outpatient #Adrenal insufficiency Despite hypotension and illness random cortisol was relatively low. Start on hydrocortisone with marked improvement in blood pressure Suspect AI contributing to both his acute symptoms and to some degree his chronic Agnus and syncope. Once stable will transition to steroid taper and can follow-up as outpatient for additional workup/stimulation test #urinary retention AP CT showed urine bladder grossly over distended. Suspected due to fecal retention - Straight cath in ED. Bladder scan as needed, if PVR greater than [address] temporary Reich - strict I's &O's, management as constipation as below No saddle anesthesia, hip flexion and ankle dorsi/plantarflexion are intact although easily fatigued. No low back pain at time of assessment. Urine is noninfected #constipation, ileus CTA/P with some intra/extrahepatic biliary ductal dilation and CBD of 40 mm with distal tapering possibly related to postcholecystectomy changes. There is no transaminitis/obstructive LFTs. - KUB without improvement and consistent with ileus Patient has had some amounts of liquid diarrhea. On CT review does have a significant colonic stool burden and constipationWill continue with MiraLAX 3 times daily, Colace, and clears until bowels are progressing. Enema x 1 ordered for rectal burden. Suspect the liquid diarrhea in small amounts is overflow, stool softeners/laxatives are still currently indicated. Do not use loperamide at this time Stool studies pending #anemia Hgb 11.6 at time of admission, baseline. Known macrocytic anemia. - hemoglobin 9.7. No active bleeding appreciated. Continue to trend. #hiatal hernia - diagnostic imaging revealed rolling hiatal hernia. Known history of with silent aspiration. - Aspiration precautions #Paroxysmal A-fib - in sinus rhythm at time of admission. -INR 2.5 Continue sotalol No active bleeding, no new neurologic deficits Warfarin resumed goal 23. If any signs of active bleeding then hold warfarin and reverse VTE ppx: Anticoagulated Dispo: med/tele Admission and Anticipated Discharge Date Admission Date: December 31, 2024 Subjective Bedside he reports he continues to feel extremely tired. Has been having liquid bowel movements. Does still feel bloated. Feels like he is "not all there" and weak all over. Denies any focal weakness. He knows he is in the hospital and answers questions appropriately. Physical Exam Physical Exam: General: Oriented to name, place, and year. Cooperative. No acute distress HEENT: Left eye abrasion present without active bleeding. EOM intact. Vision and hearing grossly intact. Pupils equal and reactive to light Pulm: Diminished but grossly clear. Symmetrical chest rise. No increased work of breathing. No respiratory distress. Cardiac: RRR, -mrg. Radial pulses intact and symmetrical. Abdominal: Nontender, soft, slightly softly distended. Bowel sounds are diminished Extremities: Left lower extremity with mild chronic edema and chronic stasis hyperpigmentation changes. Fatigues easily but strength grossly intact Results & Data Results & Data Vital Signs (Past 12 Hours) Vital Signs Temp Pulse Pulse Pulse Resp BP BP 01/01/25 07:49 37 C 73 18 82/50 L 01/01/25 07:24 01/01/25 07:10 72 01/01/25 04:00 36.8 C 72 18 95/59 L 12/31/24 23:00 36.7 C 74 18 99/62 L 12/31/24 22:00 75 Pulse Ox O2 Del Method 01/01/25 07:49 93 Room Air 01/01/25 07:24 Room Air 01/01/25 07:10 01/01/25 04:00 96 Room Air 12/31/24 23:00 96 Room Air 12/31/24 22:00 PG Care Time/CCT Total # of Minutes Spent Total Time Spent with Patient: Total time spent is greater than 50% in coordination of care (as documented) at patient's floor/unit and/or counseling patient: Coding Level of Care Code 72981 SUB INP/OBS CARE 3/50MIN Diagnoses Syncope R55 Syncope type: unspecified Facial laceration S01.81XA Urinary retention R33.9 Constipation K59.00 (1) Syncope Syncope type: unspecified Qualified Code(s): R55 - Syncope and collapse
[2025-01-01] MEDS: ACETAMINOPHEN 325 MG TAB PO PRN (08:28)
[2025-01-01] MEDS: LACTATED RINGER'S 1,000 ML IV ONE (09:37)
[2025-01-01] MEDS: PIPERACILLIN/TAZOBACTAM 4.5 GM/100 ML BAG IV ONE (09:44)
[2025-01-01 11:56] LABS: Hematocrit (blood only) 28.8 % (42.0-52.0); Hemoglobin 9.7 g/dl (14.0-18.0)
--- NOTE | 2025-01-01 13:01 | Electrocardiogram Report ---
Test Reason : Blood Pressure : */* mmHG Vent. Rate : 70 BPM Atrial Rate : 70 BPM P-R Int : 142 ms QRS Dur : 122 ms QT Int : 444 ms P-R-T Axes : 84 73 63 degrees QTcB Int : 479 ms Normal sinus rhythm RSR' or QR pattern in V1 suggests right ventricular conduction delay Borderline ECG When compared with ECG of 25-Dec-2024 18:42, No significant change was found Confirmed by Chaz Zarate ([id number]) on 01/01/2025 1:00:57 PM Referred By: REFERRED SELF Confirmed By: Chaz Zarate
[2025-01-01] MEDS: PIPERACILLIN/TAZOBACTAM 4.5 GM/100 ML BAG IV SCH (14:14)
[2025-01-01] MEDS: HYDROCORTISONE SOD 100 MG in SYRINGE 0 ML IV ONE (15:26)
[2025-01-01 16:46] LABS: Adenovirus F 40/41 PCR Not Detected (NotDetected); Astrovirus PCR Not Detected (NotDetected); Campylobacter PCR Not Detected (NotDetected); Cryptosporidium PCR Not Detected (NotDetected); Cyclospora cayetanensis PCR Not Detected (NotDetected); Entamoeba histolytica PCR Not Detected (NotDetected); Enteroaggregative E.coli(EAEC) Not Detected (NotDetected); Enteropathogenic E.coli (EPEC) Not Detected (NotDetected); Enterotoxigenic E.coli (ETEC) Not Detected (NotDetected); Giardia lamblia PCR Not Detected (NotDetected); Norovirus GI/GII PCR Not Detected (NotDetected); Plesiomonas shigelloides PCR Not Detected (NotDetected); Rotavirus A PCR Not Detected (NotDetected); Salmonella PCR Not Detected (NotDetected); Sapovirus PCR Not Detected (NotDetected); Shiga-like Toxin E.coli (STEC) Not Detected (NotDetected); Shigella/Enteroinvasive E.coli Not Detected (NotDetected); Vibrio cholerae PCR Not Detected (NotDetected); Vibrio species PCR Not Detected (NotDetected); Yersinia enterocolitica PCR Not Detected (NotDetected)
[2025-01-01] MEDS: HYDROCORTISONE SOD 50 MG in SYRINGE 0 ML IV SCH (21:27)
[2025-01-02 09:41] LABS: Hematocrit (blood only) 33.4 % (42.0-52.0); Hemoglobin 11.2 g/dl (14.0-18.0); Mean Corpuscular Hemoglobin 33.9 pg (25.0-34.0); Mean Corpuscular Hgb Conc 33.5 g/dL (32.0-36.0); Mean Corpuscular Volume 101.2 fL (80.0-100.0); Mean Platelet Volume 10.5 fL (9.4-12.4); Platelet Count 165 K/uL (130-400); RDW Coefficient of Variation 13.1 % (11.5-14.5); RDW Standard Deviation 49.1 fL (36.4-46.3); White Blood Count 10.87 K/ul (4.8-10.8)
[2025-01-02 09:54] LABS: BUN Creatinine Ratio 20.4 (10-20); Calcium 8.7 mg/dl (8.6-10.3); Creatinine Clr Calc Pharmacy 50.2 ml/min; Potassium 3.4 mmol/L (3.5-5.1)
[2025-01-02 09:58] LABS: Basophils # (auto) 0.01 K/uL (0.00-0.20); Basophils % (auto) 0.1 %; Dohle Bodies 1+; Echinocytes 1+; Immature Granulocytes # (auto) 0.06 K/uL (0.01-0.20); Immature Granulocytes % (auto) 0.6 %; Lymphocytes # (auto) 0.96 K/uL (1.20-3.40); Lymphocytes % (auto) 8.8 %; Monocytes % (auto) 2.8 %; Neutrophils # (auto) 9.54 K/uL (1.40-6.50); Neutrophils % (auto) 87.7 %; Polychromasia 1+
[2025-01-02] MEDS: POTASSIUM CHLORIDE CRTAB 20 MEQ TABCR PO STA (10:41)
--- NOTE | 2025-01-02 13:13 | Hospitalist Progress Note ---
Date of Service January 02, 2025 Assessment & Plan (1) Syncope: (2) Facial laceration: (3) Urinary retention: (4) Constipation: Plan Patient is an 89-year-old male with past medical history of paroxysmal A-fib on warfarin, hypothyroidism, BPH, B12 deficiency, hiatal hernia with silent aspiration. Patient presented via EMS after assisted back did syncopal episode and head strike. Patient was walking from his dining room to kitchen and woke up on the floor, he clicked his alert pendant to summon EMS. Workup in ED essentially negative, patient is being admitted for syncopal workup. Following admission he is being treated for SIRS with elevated Pro-Michael and concern for pneumonia versus gastric translocation, no signs of UTI were present. He also had a relatively suppressed cortisol given his degree of stress and hypotension and had rapid improvement following addition of hydrocortisone consistent with some degree of adrenal insufficiency. He is clinically progressing 01/02. Strength, blood pressure, and lethargy appear markedly improved from prior however he is intermittently very confused. Suspect some delirium and metabolic encephalopathy. No focal deficits. He is oriented to hospital, name, place and year but is tangential requires frequent redirection does not express an understanding of his medical condition and treatments. Did discuss his care case and progression with his daughter Lachelle at the bedside today who notes patient is significantly more confused than his normal baseline. SIRS,? Pneumonia versus gastric translocation Patient with elevated procalcitonin, elevated leukocytosis and clinically poor appearance. Denies localizing symptoms other than diarrhea. Stool studies negative Started on Zosyn. Medically progressing, leukocytosis downtrending, afebrile assessment. Narrowed to Unasyn Treated for relative AI as noted UA was not infected appearing MRSA nare negative. Denies ongoing respiratory symptoms, CTchest with likely chronic changes however recurrent infection is not excluded CTA/P with IV contrast with bladder distention, no other acute abnormalities and no report of hematoma/retroperitoneal bleed. No evidence of diverticulitis/appendicitis. Post-fabricio biliary dilation was seen however transaminitis and bilirubin were not elevated #Syncope, volume contraction On admission he was with volume contraction/prerenal. Weak and very fatigued Subsequently with elevated procalcitonin and ill appearance. Treated for possible pneumonia as below No evidence of hyper/hypoglycemia, significant electrolyte abnormality, or is chemia. EKG normal sinus rhythm without acute ischemic change. No signs of bradycardia/heart block Echo: EF 65 to 70%, no regional wall motion abnormalities. Normal RVSP. Moderate concentric LVH - Neurochecks every 4 hours; low threshold for repeat head CT if neurologic changes given warfarin use. Currently extremity strength is intact and does not have any acute focal neurologic deficits on rounding reassessment - Daily wound care to left facial abrasion - fall precautions - PT/OT consulted Blood pressure markedly improved following addition of hydrocortisone consistent with relative AI #Adrenal insufficiency Despite hypotension and illness random cortisol was relatively low. Start on hydrocortisone with marked improvement in blood pressure Suspect AI contributing to both his acute symptoms and to some degree his chronic weakness and syncope. Taper and monitor for blood pressure tolerance, outpatient follow-up with endocrine. Will need ongoing monitoring for IV steroid taper until able to be transitioned to p.o. dosing. Every 6 hour--> every 8 hours--> every 12 hours taper ordered Hypokalemia P.o. repletion ordered. BMP trended #urinary retention AP CT showed urine bladder grossly over distended. Suspected due to fecal retention - Reich placed for recurrent retention. Flomax continued - strict I's &O's, management as constipation as below No saddle anesthesia, hip flexion and ankle dorsi/plantarflexion intact on admission although easily fatigued. UA does not appear infected #constipation, ileus CTA/P with some intra/extrahepatic biliary ductal dilation and CBD of 40 mm with distal tapering possibly related to postcholecystectomy changes. There is no transaminitis/obstructive LFTs. KUB consistent with ileus Patient has had some amounts of liquid diarrhea. On CT review does have a significant colonic stool burden and constipation - Will continue with MiraLAX 3 times daily, Colace, and clears until bowels are progressing. Suspect the liquid diarrhea in small amounts is overflow, stool softeners/laxatives are still currently indicated. Do not use loperamide at this time. Reportedly with 1 bowel movement overnight with firmness/chunks to it hopefully bowels continue to progress. Stool studies negative #anemia Hgb 11.6 at time of admission, baseline. Known macrocytic anemia. - hemoglobin 9.7. No active bleeding appreciated. Continue to trend. #hiatal hernia - diagnostic imaging revealed rolling hiatal hernia. Known history of with silent aspiration. - Aspiration precautions #Paroxysmal A-fib - in sinus rhythm at time of admission. -INR 2.5 Continue sotalol No active bleeding, no new neurologic deficits Warfarin resumed goal 23. If any signs of active bleeding then hold warfarin and reverse VTE ppx: Anticoagulated Dispo: med/tele Admission and Anticipated Discharge Date Admission Date: December 31, 2024 Subjective Seen at the bedside. Has had a Reich placed for retention. Patient is confused but energy/alertness is greatly improved from prior. Sitting up at the commode at time of visit. He is oriented to name, year, and month but is somewhat tangential and difficult to redirect. No pain. No fevers or chills. Mild tachycardia. Blood pressure greatly improved/normotensive today. Reich in place for retention Physical Exam Physical Exam: General: Oriented to name, place, year and month. Cooperative. No acute distress but is very confused and requires frequent redirection during conversation HEENT: Left eye abrasion present without active bleeding. EOM intact. Vision and hearing grossly intact. Pupils equal and reactive to light Pulm: Diminished but grossly clear. Symmetrical chest rise. No increased work of breathing. No respiratory distress. Cardiac: RRR, -mrg. Radial pulses intact and symmetrical. Abdominal: Nontender, soft : Reich in place Extremities: Left lower extremity with mild chronic edema and chronic stasis hyperpigmentation changes. Fatigues easily but strength grossly intact Results & Data Results & Data Vital Signs (Past 12 Hours) Vital Signs Temp Pulse Pulse Resp BP Pulse Ox O2 Del Method 01/02/25 11:39 36.5 C 94 H 16 117/74 98 Room Air 01/02/25 07:41 37.0 C 74 16 117/64 94 Room Air 01/02/25 07:00 90 01/02/25 03:20 36.2 C L 77 12 119/69 93 Room Air PG Care Time/CCT Total # of Minutes Spent Total Time Spent with Patient: Total time spent is greater than 50% in coordination of care (as documented) at patient's floor/unit and/or counseling patient: Coding Level of Care Code 13944 SUB INP/OBS CARE 3/50MIN Diagnoses Syncope R55 Syncope type: unspecified Facial laceration S01.81XA Urinary retention R33.9 Constipation K59.00 (1) Syncope Syncope type: unspecified Qualified Code(s): R55 - Syncope and collapse
[2025-01-02] MEDS ORDERED: OLANZapine 10 MG/2.1 ML SDV IM PRN (13:14)
[2025-01-02] MEDS: AMPICILLIN/SULBACTAM SOD 3,000 MG/100 ML BAG IV SCH (14:02)
[2025-01-02] MEDS: MELATONIN 3 MG TAB PO PRN (21:06)
[2025-01-03] MEDS ORDERED: MENTHOL-ZINC OXIDE 360 APPLN/120 GM TUBE EXT PRN (05:03)
[2025-01-03] MEDS ORDERED: PHA DELIRIUM CONSULT PRN (06:52)
[2025-01-03 07:06] LABS: Basophils # (auto) 0.02 K/uL (0.00-0.20); Basophils % (auto) 0.1 %; Hematocrit (blood only) 29.2 % (42.0-52.0); Hemoglobin 10.1 g/dl (14.0-18.0); Immature Granulocytes # (auto) 0.07 K/uL (0.01-0.20); Immature Granulocytes % (auto) 0.5 %; Lymphocytes # (auto) 1.39 K/uL (1.20-3.40); Lymphocytes % (auto) 10.3 %; Mean Corpuscular Hemoglobin 34.2 pg (25.0-34.0); Mean Corpuscular Hgb Conc 34.6 g/dL (32.0-36.0); Monocytes # (auto) 1.01 K/uL (0.11-0.59); Monocytes % (auto) 7.5 %; Neutrophils # (auto) 10.98 K/uL (1.40-6.50); Neutrophils % (auto) 81.6 %; Platelet Count 182 K/uL (130-400); RDW Coefficient of Variation 12.8 % (11.5-14.5); RDW Standard Deviation 46.6 fL (36.4-46.3); Red Blood Count 2.95 M/uL (4.70-6.10); White Blood Count 13.47 K/ul (4.8-10.8)
[2025-01-03 07:30] LABS: BUN Creatinine Ratio 34.7 (10-20); Calcium 8.3 mg/dl (8.6-10.3); Creatinine Clr Calc Pharmacy 52.8 ml/min; Magnesium 1.8 mg/dl (1.7-2.4); Phosphorus 2.2 mg/dl (2.5-4.9); Potassium 3.3 mmol/L (3.5-5.1)
[2025-01-03] MEDS ORDERED: POTASSIUM PHOS 3 MMOL/1 ML INFUSION IV STA (07:48)
[2025-01-03] MEDS: POTASSIUM PHOSPHATE 15 MMOL in SODIUM CHLORIDE 0.9% 250 ML IV ONE (09:08)
[2025-01-03] MEDS: HYDROCORTISONE SOD 50 MG in SYRINGE 0 ML IV SCH (09:08)
[2025-01-03] MEDS: MAGNESIUM OXIDE 400 MG TAB PO SCH (09:09)
--- NOTE | 2025-01-03 09:43 | Hospitalist Progress Note ---
Date of Service January 03, 2025 Assessment & Plan (1) Syncope: (2) Facial laceration: (3) Urinary retention: (4) Constipation: Plan Patient is an 89-year-old male with past medical history of paroxysmal A-fib on warfarin, hypothyroidism, BPH, B12 deficiency, hiatal hernia with silent aspiration. Patient presented via EMS after assisted back did syncopal episode and head strike. Patient was walking from his dining room to kitchen and woke up on the floor, he clicked his alert pendant to summon EMS. Workup in ED essentially negative, patient is being admitted for syncopal workup. Following admission he is being treated for SIRS with elevated Pro-Michael and concern for pneumonia versus gastric translocation, no signs of UTI were present. He also had a relatively suppressed cortisol given his degree of stress and hypotension and had rapid improvement following addition of hydrocortisone consistent with some degree of adrenal insufficiency. Altered mental status Energy and alertness is improved however he is much more confused than his normal baseline per family. Some waxing and waning course suggestive of delirium, yesterday was oriented to name/place/hospital/year/month, more confused this morning on waking and requiring frequent redirection. Does not have focal neurologic deficits. Suspect metabolic encephalopathy with superimposed delirium however if any focal deficits defer or he has a persistent rather than waxing waning course then would repeat serial CThead at that time. CThead on admission did not show any evidence of ICH SIRS,? Pneumonia versus gastric translocation Patient with elevated procalcitonin, elevated leukocytosis and clinically poor appearance. Denies localizing symptoms other than diarrhea. Stool studies negative Started on Zosyn. Narrowed to Unasyn. Continue Unasyn UA was not infected appearing MRSA nare negative. Denies ongoing respiratory symptoms, CTchest with likely chronic changes however recurrent infection is not excluded CTA/P with IV contrast with bladder distention, no other acute abnormalities and no report of hematoma/retroperitoneal bleed. No evidence of diverticulitis/appendicitis. Post-fabricio biliary dilation was seen however transaminitis and bilirubin were not elevated slight uptrending leukocytosis in the setting of steroid use. Afebrile. #Syncope, volume contraction On admission he was with volume contraction/prerenal. Weak and very fatigued No evidence of hyper/hypoglycemia, significant electrolyte abnormality, or ischemia. EKG normal sinus rhythm without acute ischemic change. No signs of bradycardia/heart block Echo: EF 65 to 70%, no regional wall motion abnormalities. Normal RVSP. Moderate concentric LVH - Daily wound care to left facial abrasion - fall precautions - PT/OT consulted Blood pressure normalized after the addition of hydrocortisone which is being tapered #Adrenal insufficiency Despite hypotension and illness random cortisol was relatively low. Start on hydrocortisone with marked improvement in blood pressure Suspect AI contributing to both his acute symptoms and to some degree his chronic weakness and syncope. Taper and monitor for blood pressure tolerance, outpatient follow-up with endocrine. Will need ongoing monitoring for IV steroid taper until able to be transitioned to p.o. dosing. Every 6 hour--> every 8 hours--> every 12 hours taper ordered Hypokalemia P.o. repletion ordered. BMP trended #urinary retention AP CT showed urine bladder grossly over distended. Suspected due to fecal retention - Reich placed for recurrent retention. Flomax continued - strict I's &O's, management as constipation as below No saddle anesthesia, hip flexion and ankle dorsi/plantarflexion intact on admission although easily fatigued. UA does not appear infected #constipation, ileus CTA/P with some intra/extrahepatic biliary ductal dilation and CBD of 40 mm with distal tapering possibly related to postcholecystectomy changes. There is no transaminitis/obstructive LFTs. KUB consistent with ileus Patient has had some amounts of liquid diarrhea. On CT review does have a significant colonic stool burden and constipation - Will continue with MiraLAX 3 times daily, Colace, and clears until bowels are progressing. Suspect the liquid diarrhea in small amounts is overflow, stool softeners/laxatives are still currently indicated. Do not use loperamide at this time. Reportedly with 1 bowel movement overnight with firmness/chunks to it hopefully bowels continue to progress. Stool studies negative Patient is still having mostly liquid bowel movements, but persistently. Serial KUB pending #anemia Hgb 11.6 at time of admission, baseline. Known macrocytic anemia. -Hemoglobin stable on recheck #hiatal hernia - diagnostic imaging revealed rolling hiatal hernia. Known history of with silent aspiration. - Aspiration precautions #Paroxysmal A-fib - in sinus rhythm at time of admission. -INR 2.5 Continue sotalol No active bleeding, no new neurologic deficits Warfarin resumed goal 23. If any signs of active bleeding then hold warfarin and reverse Disposition Lives alone typically. High fall risk. PT/OT following, recommend rehab at discharge. Patient remains with acute metabolic encephalopathy and superimposed delirium and on IV steroid taper at this time VTE ppx: Anticoagulated Dispo: med/tele Admission and Anticipated Discharge Date Admission Date: December 31, 2024 Subjective Seen at the bedside. Seen at the bedside. Reich in place. Patient remains confused compared to his baseline. Intermittently delirious. Requires frequent redirection to eat breakfast and put Gatorade in his oatmeal this morning. Moves all extremities equally, pupils are equal and reactive and vision and hearing are grossly intact without focal neurologic deficits however continues to have confusion/encephalopathy with some waxing and waning orientation. No other overnight events Physical Exam Physical Exam: General: Increased confusion. Oriented to name and requires frequent redirection. HEENT: Eye abrasion as noted, stable. EOM intact. Vision and hearing grossly intact. Pupils equal and reactive. Pulm: Diminished but grossly clear. Symmetrical chest rise. No increased work of breathing. No respiratory distress. Cardiac: RRR, -mrg. Radial pulses intact and symmetrical. Abdominal: Nontender, soft, nondistended : Reich in place Extremities: Left lower extremity with mild chronic edema and chronic stasis hyperpigmentation changes. Moving upper and lower extremities equally. Results & Data Results & Data Vital Signs (Past 12 Hours) Vital Signs Temp Pulse Pulse Resp BP Pulse Ox O2 Del Method 01/03/25 07:50 36.3 C L 63 20 135/68 96 Room Air 01/03/25 05:43 65 01/03/25 04:00 01/02/25 23:27 36.5 C 70 20 127/72 98 Room Air 01/02/25 22:40 72 O2 Del Method 01/03/25 07:50 01/03/25 05:43 01/03/25 04:00 Room Air 01/02/25 23:27 01/02/25 22:40 PG Care Time/CCT Total # of Minutes Spent Total Time Spent with Patient: Total time spent is greater than 50% in coordination of care (as documented) at patient's floor/unit and/or counseling patient: Coding Level of Care Code 95910 SUB INP/OBS CARE 3/50MIN Diagnoses Syncope R55 Syncope type: unspecified Facial laceration S01.81XA Urinary retention R33.9 Constipation K59.00 (1) Syncope Syncope type: unspecified Qualified Code(s): R55 - Syncope and collapse
--- NOTE | 2025-01-03 11:52 | XRay Report ---
KUB CLINICAL HISTORY: ileus/stool burden, serial exam COMPARISON STUDY: CT of the abdomen and pelvis and KUB December 31, 2024. FINDINGS: A Reich within the bladder is present. There are cholecystectomy clips. The bowel gas patte rn is normal. The amount of stool within the colon and rectum is within normal limits. This has decre ased since CT of December 31, 2024. IMPRESSION: 1. No evidence for a bowel obstruction. 2. Amount of stool within normal limits. ACT 112: Negative or not required by law. Electronically signed by: Jose Elias Dan M.D. 01/03/2025 11:51 AM
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
[2025-01-04] MEDS: HYDROCORTISONE SOD 50 MG in SYRINGE 0 ML IV SCH (08:12)
[2025-01-04] MEDS: POLYETHYLENE (MIRALAX) 17 GM PACK PO SCH (08:14)
[2025-01-04 08:40] LABS: Basophils # (auto) 0.02 K/uL (0.00-0.20); Basophils % (auto) 0.2 %; Hemoglobin 10.5 g/dl (14.0-18.0); Immature Granulocytes # (auto) 0.09 K/uL (0.01-0.20); Immature Granulocytes % (auto) 0.8 %; Lymphocytes % (auto) 11.6 %; Mean Corpuscular Hemoglobin 34.7 pg (25.0-34.0); Mean Platelet Volume 10.5 fL (9.4-12.4); Monocytes # (auto) 0.76 K/uL (0.11-0.59); Monocytes % (auto) 6.8 %; Neutrophils # (auto) 9.02 K/uL (1.40-6.50); Neutrophils % (auto) 80.6 %; Platelet Count 210 K/uL (130-400); RDW Coefficient of Variation 12.7 % (11.5-14.5); RDW Standard Deviation 46.6 fL (36.4-46.3); Red Blood Count 3.03 M/uL (4.70-6.10); White Blood Count 11.19 K/ul (4.8-10.8)
[2025-01-04 08:58] LABS: Calcium 8.3 mg/dl (8.6-10.3); Creatinine Clr Calc Pharmacy 60.8 ml/min; Potassium 3.5 mmol/L (3.5-5.1)
[2025-01-04] MEDS: HYDROCORTISONE 10 MG TAB PO ONE (17:05)
[2025-01-04] MEDS ORDERED: PHA DELIRIUM CONSULT PRN (21:23)
[2025-01-04 23:47] VITALS: O2SAT 97
[2025-01-05 06:41] LABS: Basophils # (auto) 0.01 K/uL (0.00-0.20); Basophils % (auto) 0.1 %; Eosinophils # (auto) 0.08 K/uL (0.00-0.50); Eosinophils % (auto) 0.9 %; Hematocrit (blood only) 29.9 % (42.0-52.0); Hemoglobin 10.2 g/dl (14.0-18.0); Immature Granulocytes % (auto) 1.1 %; Mean Corpuscular Hemoglobin 33.7 pg (25.0-34.0); Mean Corpuscular Hgb Conc 34.1 g/dL (32.0-36.0); Mean Corpuscular Volume 98.7 fL (80.0-100.0); Mean Platelet Volume 10.1 fL (9.4-12.4); Monocytes # (auto) 1.14 K/uL (0.11-0.59); Monocytes % (auto) 12.3 %; Neutrophils # (auto) 5.44 K/uL (1.40-6.50); Neutrophils % (auto) 58.6 %; Platelet Count 210 K/uL (130-400); RDW Coefficient of Variation 13.2 % (11.5-14.5); RDW Standard Deviation 47.4 fL (36.4-46.3); Red Blood Count 3.03 M/uL (4.70-6.10); White Blood Count 9.27 K/ul (4.8-10.8)
[2025-01-05 07:04] LABS: BUN Creatinine Ratio 39.3 (10-20); Calcium 8.2 mg/dl (8.6-10.3); Creatinine Clr Calc Pharmacy 61.6 ml/min; Potassium 3.5 mmol/L (3.5-5.1)
[2025-01-05 08:28] VITALS: BP 142/70; RESP 17; TEMP 97.3
[2025-01-05] MEDS: HYDROCORTISONE 10 MG TAB PO SCH (08:29)
[2025-01-05 10:41] VITALS: PULSE 50
[2025-01-05] MEDS: AMOXICILLIN/CLAVULANATE 875 MG TAB PO ONE (10:47)
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
[2025-01-05] MEDS ORDERED: HYDROCORTISONE 10 MG TAB PO SCH (14:00)
[2025-01-05] MEDS ORDERED: AMOXICILLIN/CLAVULANATE 875 MG TAB PO SCH (17:00)
== END 2025-01-05 13:16 | DRG 193 ==
LOC: SUATTDRO → ED 00:12 → SUATTDRO 03:26 → EDINP 03:26 → 2N 04:08